=== PATIENT | female | born 2000 | race Caucasian/White ===

== ENCOUNTER 2018-01-17 17:23 | Emergency (ER) | payer OTHER ==
[~2018-01-17] VITALS: Ht 167.6 cm; Wt 58.1 kg
[~2018-01-17 17:23] MED LIST: ONDA4TAB10 SL; POLY10DR EACHEYE; SULF1TAB24 PO
--- NOTE | 2018-01-17 18:28 | ED.ADGEN ---
Past History Past Medical History: Anxiety Past Surgical History: No Surgical History Smoking: Non-smoker Alcohol Use: None Drug Use: None Adult General Chief Complaint Chief Complaint " I ve been having these interment headaches around my Lt eye...and I get decreased vision for the 30 seconds... but I had another episode that was maybe 4 minutes when I called into work today....." I ve seen Dr. Bradley.. yesterday and she did some blood work.. and I seen the eye doctor at [facility]... She did a dilated exam... and use the eye equipment to look into the back of my eye... my eye hurts more when I wear my glasses.. the vision is horace núñez... when I have the pain.. but it goes away when the pain goes away...." " I do have a scheduled KAMILLA this next week..." HPI HPI Patient is a 17 year old female who presents with above hx of interment headaches & vision loss or "núñez vision". No new glasses for past 3 yrs. Has schedule apt. for new glasses. Pt. Visual Acuity is 20/30 Rt. 20/40 Lt. eye. Pt. has hx of Myopia. EOMI appear intact. Photophobia in Lt eye with light, but no consensual photophobia. Her old glasses make her left eye pain worse. Pt. has no limbus injection. Reportedly [facility] eye exam exam with dilation and fluorescein was reportedly negative. Patient denies any immunosuppression. Patient denies any travel. Patient denies any trauma. Percussion of maxillary sinus increases pain. No temporal artery tenderness. Review of Systems Review of Systems Constitutional: Denies fever or chills [] Eyes: Denies change in visual acuity in right eye. Denies, redness,. Complaints of intermittent left eye pain . Patient []complains of intermittent decreased visual acuity in left eye HENT: Denies nasal congestion or sore throat [] Respiratory: Denies cough or shortness of breath [] Cardiovascular: No additional information not addressed in HPI [] GI: Denies abdominal pain, nausea, vomiting, bloody stools or diarrhea [] : Denies dysuria or hematuria [] Musculoskeletal: Denies back pain or joint pain [] Integument: Denies rash or skin lesions [] Neurologic: History of intermittent headache left orbital headache, denies focal weakness or sensory changes [] Endocrine: Denies polyuria or polydipsia [] All other systems were reviewed and found to be within normal limits, except as documented in this note. Family History Family History Noncontributory Current Medications Current Medications See nursing for home meds Allergies Allergies Allergies Coded Allergies Type Severity Reaction Last Updated Verified Penicillins Allergy Severe Hives 08/05/15 Yes Physical Exam Physical Exam Constitutional: Well developed, well nourished, no acute distress, non-toxic appearance. [] HENT: Normocephalic, atraumatic, bilateral external ears normal, oropharynx moist, no oral exudates, nose normal. [] Eyes: PERRLA, EOMI, conjunctiva normal, no discharge. Exam as per history of present illness Neck: Normal range of motion, no tenderness, supple, no stridor. [] Cardiovascular:Heart rate regular rhythm, no murmur [] Lungs & Thorax: Bilateral breath sounds clear to auscultation [] Abdomen: Bowel sounds normal, soft, no tenderness, no masses, no pulsatile masses. [] Skin: Warm, dry, no erythema, no rash. [] Back: No tenderness, no CVA tenderness. [] Extremities: No tenderness, no cyanosis, no clubbing, ROM intact, no edema. [] Neurologic: Alert and oriented X 3, normal motor function, normal sensory function, no focal deficits noted. [] Psychologic: Affect not anxious, , judgement normal, mood normal. [] Current Patient Data Vital Signs Vital Signs Date Time Temp Pulse Resp B/P (MAP) Pulse Ox O2 Delivery O2 Flow Rate FiO2 01/17/18 19:30 51 16 123/69 (87) 98 Room Air 01/17/18 17:47 97.7 Lab Results Laboratory Tests Test 01/17/18 18:25 White Blood Count 5.0 x10^3/uL (4.0-11.0) Red Blood Count 4.33 x10^6/uL (3.50-5.40) Hemoglobin 13.1 g/dL (12.0-15.5) Hematocrit 39.0 % (36.0-47.0) Mean Corpuscular Volume 90 fL (79-100) Mean Corpuscular Hemoglobin 30 pg (25-35) Mean Corpuscular Hemoglobin Concent 34 g/dL (31-37) Red Cell Distribution Width 13.6 % (11.5-14.5) Platelet Count 177 x10^3/uL (140-400) Neutrophils (%) (Auto) 46 % (31-73) Lymphocytes (%) (Auto) 42 % (24-48) Monocytes (%) (Auto) 10 % (0-9) H Eosinophils (%) (Auto) 1 % (0-3) Basophils (%) (Auto) 1 % (0-3) Neutrophils # (Auto) 2.3 x10^3uL (1.8-7.7) Lymphocytes # (Auto) 2.1 x10^3/uL (1.0-4.8) Monocytes # (Auto) 0.5 x10^3/uL (0.0-1.1) Eosinophils # (Auto) 0.1 x10^3/uL (0.0-0.7) Basophils # (Auto) 0.0 x10^3/uL (0.0-0.2) Erythrocyte Sedimentation Rate 1 (0-25) Sodium Level 143 mmol/L (136-145) Potassium Level 3.5 mmol/L (3.5-5.1) Chloride Level 105 mmol/L (98-107) Carbon Dioxide Level 30 mmol/L (21-32) Anion Gap 8 (6-14) Blood Urea Nitrogen 6 mg/dL (7-20) L Creatinine 0.6 mg/dL (0.6-1.0) Estimated GFR (Cockcroft-Gault) 128.8 Glucose Level 122 mg/dL (70-99) H Calcium Level 8.9 mg/dL (8.5-10.1) C-Reactive Protein 0.7 mg/L (0-3.3) EKG EKG [] Radiology/Procedures Radiology/Procedures CT shows no obvious sinusitis or mass or obvious optic nerve inflammation.[] Course & Med Decision Making Course & Med Decision Making Pertinent Labs and Imaging studies reviewed. (See chart for details). Have a repeat ophthalmic evaluation by ophthalmology. Call in a.m. for an appointment. Get follow-up MRI. Follow-up primary care. May take Tylenol for pain. Avoid any straining activity. Do not drive. A trial of prednisone for possible optic neuritis. Do a course of prednisone 50 daily for 5 days. Should see ophthalmology before ending prednisone. Must follow-up. [] Final Impression Final Impression 1. Intermittent decrease in visual acuity and left orbital pain [] Problems: Dragon Disclaimer Dragon Disclaimer This electronic medical record was generated, in whole or in part, using a voice recognition dictation system. VASILE LU MD Jan 17, 2018 18:27
[2018-01-17 18:42] LABS: BASO % 1 % (0-3); EOS # 0.1 x10^3/uL (0.0-0.7); EOS % 1 % (0-3); HEMOGLOBIN 13.1 g/dL (12.0-15.5); LYMPH # 2.1 x10^3/uL (1.0-4.8); LYMPH % 42 % (24-48); MEAN CORPUSCULAR HEMOGLOBIN 30 pg (25-35); MEAN CORPUSCULAR HGB CONC 34 g/dL (31-37); MEAN CORPUSCULAR VOLUME 90 fL (79-100); MONO # 0.5 x10^3/uL (0.0-1.1); MONO % 10 % (0-9); NEUT # 2.3 x10^3uL (1.8-7.7); NEUT % 46 % (31-73); PLATELET COUNT 177 x10^3/uL (140-400); RED BLOOD COUNT 4.33 x10^6/uL (3.50-5.40); RED CELL DISTRIBUTION WIDTH 13.6 % (11.5-14.5)
[2018-01-17 18:51] LABS: C REACTIVE PROTEIN 0.7 mg/L (0-3.3); CALCIUM 8.9 mg/dL (8.5-10.1); CREATININE 0.6 mg/dL (0.6-1.0); GFR 128.8; POTASSIUM 3.5 mmol/L (3.5-5.1)
--- NOTE | 2018-01-17 19:00 | RAD ---
PQRS Compliance Statement: One or more of the following individualized dose reduction techniques were utilized for this examination: 1. Automated exposure control 2. Adjustment of the mA and/or kV according to patient size 3. Use of iterative reconstruction technique CT head and maxillofacial without contrast 01/17/2018 6:43 PM INDICATION: Vision loss in the left eye with periorbital headache COMPARISON: None available TECHNIQUE: Multiple axial CT images of the head were obtained from skull base through the vertex without intravenous contrast. Axial CT images of the maxillofacial structures were obtained without intravenous contrast. FINDINGS: Head: Ventricles, sulci and basal cisterns are within normal limits. There is no hydrocephalus. Perales-white matter differentiation is normal. There is no acute intracranial hemorrhage. There is no mass, mass effect or midline shift. Posterior fossa is normal in appearance. Scalp and calvaria are normal. Globes are spherical and contour. Orbits are intact. No intraconal or extraconal mass is visualized. Optic nerves are normal. Extraocular muscles are normal in appearance. No preseptal or postseptal inflammatory changes. Paranasal sinuses are well aerated. Ostiomeatal units are widely patent. Maxilla and mandible are intact. Skull base is intact. Pterygoid plates are intact. Nasopharynx, oropharynx, tongue base and floor of mouth are normal. IMPRESSION: No acute intracranial hemorrhage. No acute fracture or soft tissue abnormality involving the maxillofacial structures. Electronically signed by: Gracie Carmona MD (01/17/2018 6:57 PM) [facility]
[2018-01-17] MEDS ORDERED: PRED50TA PO (19:19)
[2018-01-17 19:30] VITALS: BP 123/69
== END 2018-01-17 19:32 | disposition home or self-care (01) ==
LOC: ER 17:23
DX: H54.62 Unqualified visual loss, left eye, normal vision right eye (principal); H57.12 Ocular pain, left eye; R51 Headache; Z88.0 Allergy status to penicillin
CPT/HCPCS: 36415; 70450; 70486; 80048; 85025; 85651; 86140; 99285-25

== ENCOUNTER 2020-03-02 19:48 | Emergency (ER) | payer OTHER ==
[~2020-03-02] VITALS: Ht 167.6 cm; Wt 74.0 kg
[~2020-03-02 19:48] MED LIST changes: +PRED50TA PO
--- NOTE | 2020-03-02 20:31 | PHYS DOC ---
Past History Past Medical History: Anxiety, Bipolar, Depression, Schizophrenia Past Surgical History: No Surgical History Smoking: Non-smoker Alcohol Use: None Drug Use: None General Adult EDM: Chief Complaint: VAGINAL BLEEDING HPI: HPI: Patient is a 19 year old female who presents for evaluation of vaginal spotting and bleeding. Patient states she may have passed part of her or placenta. Patient had a sonogram yesterday and earlier during this . She is approximately 6 to 7 weeks along. Patient's BICYCLE FITTER is located in [place], [place]. Patient's last menstrual period was December 31. Patient is a 4 para 0. Patient has had multiple prior miscarriages. Patient has some minimal lower abdominal cramping. Patient states that she has had her hormone levels checked and those levels have been declining recently. Patient is otherwise benign-appearing. Patient states she has never needed a D &C in the past [] Review of Systems: Review of Systems: Constitutional: Denies fever or chills Eyes: Denies change in visual acuity HENT: Denies nasal congestion or sore throat Respiratory: Denies cough or shortness of breath Cardiovascular: Denies chest pain or edema GI: lower abdominal pain, no nausea, vomiting, bloody stools or diarrhea : Denies dysuria Musculoskeletal: Denies back pain or joint pain Integument: Denies rash Neurologic: Denies headache, focal weakness or sensory changes Endocrine: Denies polyuria or polydipsia Lymphatic: Denies swollen glands Psychiatric: Denies depression or has anxiety Heart Score: Risk Factors: Risk Factors: DM, Current or recent (<one month) smoker, HTN, HLP, family history of CAD, obesity. Risk Scores: Score 0 - 3: 2.5% MACE over next 6 weeks - Discharge Home Score 4 - 6: 20.3% MACE over next 6 weeks - Admit for Clinical Observation Score 7 - 10: 72.7% MACE over next 6 weeks - Early Invasive Strategies Allergies: Allergies: Allergies Coded Allergies Type Severity Reaction Last Updated Verified Penicillins Allergy Severe Hives 08/05/15 Yes erythromycin base Allergy Unknown 03/02/20 Yes Physical Exam: PE: Constitutional: Well developed, well nourished, mild acute distress, non-toxic appearance. [] HENT: Normocephalic, atraumatic, bilateral external ears normal, oropharynx moist, no oral exudates, nose normal. [] Eyes: PERRL, EOMI, conjunctiva normal, no discharge. [] Neck: Normal range of motion, no tenderness, supple, no stridor. [] Cardiovascular:Heart rate regular rhythm, no murmur [] Lungs & Thorax: Bilateral breath sounds clear to auscultation [] Abdomen: Bowel sounds normal, soft, scant suprapubic tenderness, no masses, no pulsatile masses. [] Skin: Warm, dry, no erythema, no rash. [] Back: No tenderness, no CVA tenderness. [] Extremities: No tenderness, no cyanosis, no clubbing, ROM intact, no edema. [] Neurologic: Alert and oriented X 3, normal motor function, normal sensory function, no focal deficits noted. [] Psychologic: Affect normal, judgement normal, anxious mood. ADVERTISING PROJECT MANAGER: Os slightly open, dark blood present, small clots present, minimal suprapubic tenderness, no adnexal tenderness [] Current Patient Data: Vital Signs: Vital Signs Date Time Temp Pulse Resp B/P (MAP) Pulse Ox O2 Delivery O2 Flow Rate FiO2 03/02/20 19:55 98.4 64 20 159/56 (90) 100 Room Air EKG: EKG: [] Radiology/Procedures: Radiology/Procedures: [] Course & Med Decision Making: Course & Med Decision Making Pertinent Labs and Imaging studies reviewed. (See chart for details) 2135 stable, patient is a positive with a beta quant of 3369. Hemoglobin is 13.3. Patient definitely showing signs of a miscarriage at this time. There is no emergency indication to repeat a sonogram since she just had one yesterday. Pelvic exam showed some blood present in the vaginal vault as well as a slightly opened cervical os. Patient is to call and see her BICYCLE FITTER right away and follow-up tomorrow. She will likely need a repeat beta quant and possibly sonogram depending upon how this threatened miscarriage progresses. Detailed follow-up instructions given. All questions answered [] Elmer Disclaimer: Elmer Disclaimer: This electronic medical record was generated, in whole or in part, using a voice recognition dictation system. Departure Departure: Impression: Primary Impression: Threatened miscarriage in early Disposition: HOME, SELF-CARE Condition: STABLE Referrals: PCP,OZ (PCP) Patient Instructions: Miscarriage Additional Instructions: Call and see your BICYCLE FITTER right away this week. Your blood test number is [id number]. Your hemoglobin is 13. Pelvic rest recommended, no tampons or sex. Return if bleeding is severe or you become very symptomatic. ELIZABETH HUBER DO Mar 02, 2020 20:31
[2020-03-02 20:46] LABS: BASO % 1 % (0-3); EOS # 0.1 x10^3/uL (0.0-0.7); EOS % 1 % (0-3); HEMATOCRIT 40.2 % (36.0-47.0); HEMOGLOBIN 13.3 g/dL (12.0-15.5); LYMPH # 2.5 x10^3/uL (1.0-4.8); LYMPH % 38 % (24-48); MEAN CORPUSCULAR HEMOGLOBIN 30 pg (25-35); MEAN CORPUSCULAR HGB CONC 33 g/dL (31-37); MEAN CORPUSCULAR VOLUME 92 fL (79-100); MONO # 0.6 x10^3/uL (0.0-1.1); MONO % 10 % (0-9); NEUT # 3.4 x10^3uL (1.8-7.7); NEUT % 51 % (31-73); PLATELET COUNT 227 x10^3/uL (140-400); RED BLOOD COUNT 4.39 x10^6/uL (3.50-5.40); RED CELL DISTRIBUTION WIDTH 13.8 % (11.5-14.5); WHITE BLOOD COUNT 6.7 x10^3/uL (4.0-11.0)
[2020-03-02 21:40] VITALS: BP 147/71
== END 2020-03-02 21:45 | disposition home or self-care (01) ==
LOC: ER 19:48
DX: O20.0 Threatened abortion (principal); Z3A.01 Less than 8 weeks gestation of pregnancy; Z88.0 Allergy status to penicillin; Z88.1 Allergy status to other antibiotic agents
CPT/HCPCS: 36415; 84702; 85025; 86900; 86901; 99284

== ENCOUNTER 2020-08-06 21:25 | Emergency (ER) | payer OTHER ==
[~2020-08-06] VITALS: Ht 165.1 cm; Wt 77.4 kg
--- NOTE | 2020-08-06 21:40 | PHYS DOC ---
Past History Past Medical History: Anxiety, Bipolar, Depression, Schizophrenia Past Surgical History: No Surgical History Smoking: Cigarettes Alcohol Use: None Drug Use: None General Adult HPI: HPI: "... I vomited some bright red blood spots.. this is my 4 th ... I am worried.. I had miscarry with the other three.. My boss at [employer] said to come in and get checked out.. I had just eaten two slices of Pizza..." Patient is a 20 year old female who presents with above hx and estimated 5 weeks and 5 day . Pt vomiting after eating pizza. Has had morning sickness and nausea with this . Patient does have a past history of GERD and reflux. Patient does continue to smoke. Patient is on vitamins. Patient denies any trauma. Patient denies any intake of bad food. Patient is following with Rehana at [facility]. Patient works at [employer] previous work-ups indicated she has blood type a positive patient does have a past history of anxiety, bipolar disorder, depression, schizophrenia. Patient denies any specific ill contacts. No recent travel outside the [place] area. No history immunosuppression. No history of coagulopathy. Any bleeding at this . Patient has had 4 previous miscarriages in the first trimester. t Review of Systems: Review of Systems: Constitutional: Denies fever or chills Eyes: Denies change in visual acuity HENT: Denies nasal congestion or sore throat Respiratory: Denies cough or shortness of breath Cardiovascular: Denies chest pain or edema GI: Complains of epigastric abdominal pain, nausea, vomiting,. Denies bloody stools or diarrhea. Did have some spots of blood with most recent vomit that were bright red after eating pizza : Denies dysuria Musculoskeletal: Denies back pain or joint pain Integument: Denies rash Neurologic: Denies headache, focal weakness or sensory changes Endocrine: Denies polyuria or polydipsia Lymphatic: Denies swollen glands Psychiatric: Denies depression or anxiety Heart Score: Risk Factors: Risk Factors: DM, Current or recent (<one month) smoker, HTN, HLP, family history of CAD, obesity. Risk Scores: Score 0 - 3: 2.5% MACE over next 6 weeks - Discharge Home Score 4 - 6: 20.3% MACE over next 6 weeks - Admit for Clinical Observation Score 7 - 10: 72.7% MACE over next 6 weeks - Early Invasive Strategies Family History: Family History: Noncontributory Current Medications: Current Meds: See nursing for home meds Allergies: Allergies: Allergies Coded Allergies Type Severity Reaction Last Updated Verified Penicillins Allergy Severe Hives 08/05/15 Yes erythromycin base Allergy Unknown 03/02/20 Yes Physical Exam: PE: Constitutional: no acute distress, non-toxic appearance. [] HENT: Normocephalic, atraumatic, bilateral external ears normal, oropharynx moist, no oral exudates, nose normal. [] Eyes: PERRLA, EOMI, conjunctiva normal, no discharge. [] Neck: Normal range of motion, no tenderness, supple, no stridor. [] Cardiovascular:Heart rate regular rhythm, no murmur [] Lungs & Thorax: Bilateral breath sounds equal apex with scattered wheezes on auscultation [] Abdomen: Bowel sounds normal, soft, mild upper right quadrant tenderness, no masses, no pulsatile masses. Gravid. Obese. Patient declines pelvic or rectal exam Skin: Warm, dry, no erythema, no rash. [] Back: No tenderness, no CVA tenderness. [] Extremities: No tenderness, no cyanosis, no clubbing, ROM intact, no edema. [] No cording appreciated Neurologic: Alert and oriented X 3, normal motor function, normal sensory function, no focal deficits noted. [] Psychologic: Affect extremely anxious, judgement normal, mood normal. [] EKG: EKG: [] Radiology/Procedures: Radiology/Procedures: [] Course & Med Decision Making: Course & Med Decision Making Pertinent Labs and Imaging studies reviewed. (See chart for details) Clear fluid diet only for the next 48 hours. Push clear fluids. Follow-up primary care. Monitor for additional vomiting. Take vitamins. Recommend avoiding spicy or greasy foods. 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 For active vomiting he may take Zofran up to 4 times a day. Patient encouraged to stop smoking. Impression: 1. Hyperemesis gravidarum 2. Hemoglobin stable 12.4 3. BhCG16, 100 4. Blood type A Positive 5. Tobacco abuse [] Dragon Disclaimer: Elmer Disclaimer: This electronic medical record was generated, in whole or in part, using a voice recognition dictation system. Departure Departure: Disposition: 01 HOME/RESIDENCE PRIOR TO ADM Condition: STABLE Referrals: PCP,NO (PCP) Scripts Ondansetron Hcl (ZOFRAN) 8 Mg Tablet 8 MG PO QIDPRN PRN for nv, #30 BOTTLE Prov: VASILE LU MD 08/07/20 Elmer Disclaimer This chart was dictated in whole or in part using Voice Recognition software in a busy, high-work load, and often noisy Emergency Department environment. It may contain unintended and wholly unrecognized errors or omissions. Dragon Disclaimer This chart was dictated in whole or in part using Voice Recognition software in a busy, high-work load, and often noisy Emergency Department environment. It may contain unintended and wholly unrecognized errors or omissions. VASILE LU MD Aug 06, 2020 21:40
[2020-08-06] MEDS ORDERED: ONDANSETRON PF 4 MG/2 ML VIAL. IVP ONE (22:15)
[2020-08-06] MEDS ORDERED: MAGNESIUM HYDROXIDE 2,400 MG/30 ML ORAL.SUSP. PO ONE (22:15)
[2020-08-06] MEDS ORDERED: IV RINGERS SOLUTION,LACTATED 1,000 ML IV SCH (22:15)
[2020-08-06] MEDS ORDERED: FAMOTIDINE 20 MG/2 ML VIAL IVP ONE (22:15)
[2020-08-06 23:21] LABS: CALCIUM 9.3 mg/dL (8.5-10.1); CREATININE 0.8 mg/dL (0.6-1.0); GFR 89.7; POTASSIUM 3.8 mmol/L (3.5-5.1)
[2020-08-06 23:26] LABS: BASO # 0.1 x10^3/uL (0.0-0.2); BASO % 1 % (0-3); EOS # 0.1 x10^3/uL (0.0-0.7); EOS % 1 % (0-3); HEMATOCRIT 37.7 % (36.0-47.0); HEMOGLOBIN 12.4 g/dL (12.0-15.5); LYMPH % 31 % (24-48); MEAN CORPUSCULAR HEMOGLOBIN 30 pg (25-35); MEAN CORPUSCULAR HGB CONC 33 g/dL (31-37); MEAN CORPUSCULAR VOLUME 92 fL (79-100); MONO # 0.9 x10^3/uL (0.0-1.1); MONO % 10 % (0-9); NEUT # 5.7 x10^3uL (1.8-7.7); NEUT % 58 % (31-73); PLATELET COUNT 220 x10^3/uL (140-400); RED BLOOD COUNT 4.09 x10^6/uL (3.50-5.40); RED CELL DISTRIBUTION WIDTH 14.1 % (11.5-14.5); WHITE BLOOD COUNT 9.7 x10^3/uL (4.0-11.0)
[2020-08-06 23:27] LABS: ALBUMIN 3.7 g/dL (3.4-5.0); DIRECT BILIRUBIN 0.1 mg/dL (0.0-0.2); TOTAL BILIRUBIN 0.3 mg/dL (0.2-1.0); TOTAL PROTEIN 7.9 g/dL (6.4-8.2)
[2020-08-06 23:28] LABS: BARBITURATES NEG (NEG); BENZODIAZEPINES NEG (NEG); CANNABINOIDS NEG (NEG); COCAINE NEG (NEG); METHADONE NEG (NEG); OPIATES NEG (NEG); PHENCYCLIDINE NEG (NEG)
[2020-08-06 23:31] LABS: BACTERIA,URINE FEW /HPF (0-FEW); BILIRUBIN,URINE NEG (NEG); CLARITY,URINE HAZY; COLOR,URINE STRAW; GLUCOSE,URINE NEG (NEG); NITRITE,URINE NEG (NEG); RBC,URINE 0 /HPF (0-2); SQUAMOUS EPITHELIAL CELL,UR MOD /LPF; UROBILINOGEN,URINE 0.2 mg/dL (0.2 mg/dL); WBC,URINE OCC /HPF (0-4)
[2020-08-06 23:34] LABS: AMPHETAMINE/METHAMPHETAMINE NEG (NEG)
[2020-08-07 01:00] VITALS: BP 129/84
[2020-08-07] MEDS ORDERED: ONDA8TAB9 PO (01:20)
== END 2020-08-07 01:29 | disposition home or self-care (01) ==
LOC: ER 21:25
DX: O21.0 Mild hyperemesis gravidarum (principal); R10.13 Epigastric pain; Z3A.01 Less than 8 weeks gestation of pregnancy; O99.331 Smoking (tobacco) complicating pregnancy, first trimester; Z88.0 Allergy status to penicillin; Z88.1 Allergy status to other antibiotic agents
CPT/HCPCS: 36415; 80048; 80076; 80307; 81001; 81025; 82150; 83690; 84702; 85025; 85610; 85730; 96361; 96374; 96375; 99284; J2405; J3490; J7120

== ENCOUNTER 2020-09-04 07:39 | Emergency (ER) | payer OTHER ==
[~2020-09-04] VITALS: Ht 165.1 cm; Wt 77.4 kg
[~2020-09-04 07:39] MED LIST changes: +ONDA8TAB9 PO
[2020-09-04] MEDS ORDERED: IV NORMAL SALINE 1,000ML 1,000 ML IV ONE (08:00)
--- NOTE | 2020-09-04 08:09 | PHYS DOC ---
Past History Past Medical History: Anxiety, Bipolar, Depression, Schizophrenia Past Surgical History: No Surgical History Smoking: Cigarettes Alcohol Use: None Drug Use: None General Adult EDM: Chief Complaint: BLOODY STOOL HPI: HPI: 20-year-old female presents with rectal bleeding. Patient had 1 bright red b loody bowel movement today. The bowel movement was painless. Her last bowel movement was normal 2 days ago. She has a bowel movement about every 3 days. She has a history of chronic constipation. The patient has not had a significant bloody stool before. She has had some blood streaks with her stool. The patient is 9 weeks , but is adamant that the bleeding did not come from her vagina. She is having no abdominal pain. She denies fever or chills. She has no other complaints at this time. Review of Systems: Review of Systems: Constitutional: Denies fever or chills Eyes: Denies change in visual acuity HENT: Denies nasal congestion or sore throat Respiratory: Denies cough or shortness of breath Cardiovascular: Denies chest pain or edema GI: Denies abdominal pain, nausea, vomiting, bloody stools or diarrhea : Rectal bleeding Musculoskeletal: Denies back pain or joint pain Integument: Denies rash Neurologic: Denies headache, focal weakness or sensory changes Endocrine: Denies polyuria or polydipsia Lymphatic: Denies swollen glands Psychiatric: Denies depression or anxiety Current Medications: Current Meds: Current Medications Medications (Trade) Dose Ordered Sig/Janna Start Time Stop Time Status Last Admin Dose Admin Sodium Chloride 1,000 ml @ 1,000 mls/hr 1X ONCE 09/04/20 08:00 09/04/20 08:59 Allergies: Allergies: Allergies Coded Allergies Type Severity Reaction Last Updated Verified Penicillins Allergy Severe Hives 08/05/15 Yes erythromycin base Allergy Unknown 03/02/20 Yes Physical Exam: PE: Constitutional: Well developed, well nourished, no acute distress, non-toxic appearance. [] HENT: Normocephalic, atraumatic, bilateral external ears normal, oropharynx moist, no oral exudates, nose normal. [] Eyes: PERRLA, EOMI, conjunctiva normal, no discharge. [] Neck: Normal range of motion, no tenderness, supple, no stridor. [] Cardiovascular:Heart rate regular rhythm, no murmur [] Lungs & Thorax: Bilateral breath sounds clear to auscultation [] Abdomen: Bowel sounds normal, soft, no tenderness, no masses, no pulsatile masses. [] Skin: Warm, dry, no erythema, no rash. [] Back: No tenderness, no CVA tenderness. [] Extremities: No tenderness, no cyanosis, no clubbing, ROM intact, no edema. [] Neurologic: Alert and oriented X 3, normal motor function, normal sensory function, no focal deficits noted. [] Psychologic: Affect normal, judgement normal, mood normal. Rectal: Normal external exam, no pain with DIMAS, prominent area of rectal wall in the 9 o'clock position, soft. No obvious blood. [] EKG: EKG: [] Radiology/Procedures: Radiology/Procedures: [] Heart Score: Risk Factors: Risk Factors: DM, Current or recent (<one month) smoker, HTN, HLP, family history of CAD, obesity. Risk Scores: Score 0 - 3: 2.5% MACE over next 6 weeks - Discharge Home Score 4 - 6: 20.3% MACE over next 6 weeks - Admit for Clinical Observation Score 7 - 10: 72.7% MACE over next 6 weeks - Early Invasive Strategies Course & Med Decision Making: Course & Med Decision Making Pertinent Labs and Imaging studies reviewed. (See chart for details) The patient's labs are unremarkable. She is not anemic. She has had no further bleeding in the emergency room. My rectal exam did not show any obvious blood. This is likely a small fissure or hemorrhoid due to her chronic constipation. It should self resolve. If the patient continues to have bloody bowel movements and/or any new symptoms develop, she will return to the emergency room. She is stable for discharge at this time. [] Dragon Disclaimer: Dragon Disclaimer: This electronic medical record was generated, in whole or in part, using a voice recognition dictation system. Departure Departure: Impression: Primary Impression: Rectal bleeding Additional Impressions: Constipation by delayed colonic transit Qualified Codes: Z3A.09 - 9 weeks gestation of Disposition: 01 DC HOME SELF CARE/HOMELESS Condition: STABLE Referrals: PCP,UNKNOWN (PCP) Patient Instructions: Constipation, Adult, [id number], Rectal Bleeding, [id number] RITA FELTON DO Sep 04, 2020 08:09
[2020-09-04 08:23] LABS: BASO % 0 % (0-3); EOS # 0.1 x10^3/uL (0.0-0.7); EOS % 1 % (0-3); HEMATOCRIT 39.5 % (36.0-47.0); HEMOGLOBIN 13.3 g/dL (12.0-15.5); LYMPH # 2.2 x10^3/uL (1.0-4.8); LYMPH % 27 % (24-48); MEAN CORPUSCULAR HEMOGLOBIN 31 pg (25-35); MEAN CORPUSCULAR HGB CONC 34 g/dL (31-37); MEAN CORPUSCULAR VOLUME 91 fL (79-100); MONO # 0.6 x10^3/uL (0.0-1.1); MONO % 7 % (0-9); NEUT # 5.4 x10^3uL (1.8-7.7); NEUT % 65 % (31-73); PLATELET COUNT 225 x10^3/uL (140-400); RED BLOOD COUNT 4.35 x10^6/uL (3.50-5.40); RED CELL DISTRIBUTION WIDTH 13.3 % (11.5-14.5); WHITE BLOOD COUNT 8.2 x10^3/uL (4.0-11.0)
[2020-09-04 08:29] LABS: CREATININE 0.6 mg/dL (0.6-1.0); POTASSIUM 3.7 mmol/L (3.5-5.1)
[2020-09-04 08:35] LABS: ALBUMIN 3.4 g/dL (3.4-5.0); ALBUMIN/GLOBULIN RATIO 0.9 (1.0-1.7); TOTAL BILIRUBIN 0.4 mg/dL (0.2-1.0); TOTAL PROTEIN 7.2 g/dL (6.4-8.2)
[2020-09-04 08:43] LABS: CALCIUM 8.9 mg/dL (8.5-10.1)
[2020-09-04 10:11] LABS: BILIRUBIN,URINE NEG (NEG); CLARITY,URINE TURBID; COLOR,URINE YELLOW; GLUCOSE,URINE NEG (NEG); NITRITE,URINE NEG (NEG); UROBILINOGEN,URINE 0.2 mg/dL (0.2 mg/dL)
[2020-09-04 10:12] LABS: BACTERIA,URINE MANY /HPF (0-FEW); SQUAMOUS EPITHELIAL CELL,UR MANY /LPF
== END 2020-09-04 09:45 | disposition home or self-care (01) ==
LOC: ER 07:39
DX: O46.8X1 Other antepartum hemorrhage, first trimester (principal); K59.01 Slow transit constipation; O99.331 Smoking (tobacco) complicating pregnancy, first trimester; O99.341 Other mental disorders complicating pregnancy, first trimester; F41.9 Anxiety disorder, unspecified; F31.9 Bipolar disorder, unspecified; Z3A.09 9 weeks gestation of pregnancy; F20.9 Schizophrenia, unspecified; Z88.0 Allergy status to penicillin; Z88.1 Allergy status to other antibiotic agents
CPT/HCPCS: 36415; 80053; 81001; 85025; 87086; 96360; 99283; J7030

== ENCOUNTER 2020-09-21 09:29 | Emergency (ER) | payer OTHER ==
[~2020-09-21] VITALS: Ht 167.6 cm; Wt 80.0 kg
[2020-09-21 11:27] LABS: BASO % 0 % (0-3); EOS # 0.1 x10^3/uL (0.0-0.7); EOS % 1 % (0-3); HEMATOCRIT 41.8 % (36.0-47.0); HEMOGLOBIN 13.5 g/dL (12.0-15.5); LYMPH # 1.7 x10^3/uL (1.0-4.8); LYMPH % 22 % (24-48); MEAN CORPUSCULAR HEMOGLOBIN 30 pg (25-35); MEAN CORPUSCULAR HGB CONC 32 g/dL (31-37); MEAN CORPUSCULAR VOLUME 92 fL (79-100); MONO # 0.5 x10^3/uL (0.0-1.1); MONO % 7 % (0-9); NEUT # 5.4 x10^3uL (1.8-7.7); NEUT % 70 % (31-73); PLATELET COUNT 208 x10^3/uL (140-400); RED BLOOD COUNT 4.55 x10^6/uL (3.50-5.40); RED CELL DISTRIBUTION WIDTH 13.7 % (11.5-14.5); WHITE BLOOD COUNT 7.7 x10^3/uL (4.0-11.0)
[2020-09-21 11:37] LABS: CALCIUM 9.3 mg/dL (8.5-10.1); CREATININE 0.6 mg/dL (0.6-1.0); POTASSIUM 4.2 mmol/L (3.5-5.1)
[2020-09-21 11:40] LABS: BILIRUBIN,URINE NEG (NEG); CLARITY,URINE CLOUDY; COLOR,URINE YELLOW; GLUCOSE,URINE NEG (NEG); UROBILINOGEN,URINE 0.2 mg/dL (0.2 mg/dL)
[2020-09-21 11:41] LABS: BACTERIA,URINE MANY /HPF (0-FEW); NITRITE,URINE POS (NEG); SQUAMOUS EPITHELIAL CELL,UR MANY /LPF
[2020-09-21 11:44] LABS: ALBUMIN 3.3 g/dL (3.4-5.0); ALBUMIN/GLOBULIN RATIO 0.8 (1.0-1.7); TOTAL BILIRUBIN 0.2 mg/dL (0.2-1.0); TOTAL PROTEIN 7.5 g/dL (6.4-8.2)
--- NOTE | 2020-09-21 13:05 | RAD ---
Examination: Obstetric ultrasound less than 14 weeks HISTORY: History of left lower quadrant abdominal pain COMPARISON: None available. FINDINGS: The uterus measures 9.5 x 8.5 x 7.2 cm. Single living intrauterine identified with heart rate of 149 bpm. The right and left ovaries could not be identified. The crown-rump length measures 6.4 cm corresponding to 12 weeks and 5 days. Estimated date of delivery by ultrasound 03/31/2021. Small amount of free fluid identified in the cul-de-sac. IMPRESSION: 1. Single living intrauterine as described above. 2. Small amount of free fluid identified in the cul-de-sac, nonspecific. Electronically signed by: Steven Rosado MD (09/21/2020 1:02 PM) [id number]
[2020-09-21] MEDS ORDERED: CEFP200T PO (13:50)
--- NOTE | 2020-09-21 13:51 | PHYS DOC ---
Past History Past Medical History: Depression Past Surgical History: No Surgical History Smoking: Cigarettes Alcohol Use: None Drug Use: None General Adult EDM: Chief Complaint: HEMATEMESIS/VOMITING BLOOD HPI: HPI: 20 yo F @ approximately 12 wks2d (arnulfo 04/07) pmh depression, presents to the ed with c/o one episode of vomiting with blood-tinged emesis. On no AC. Follows with ob in [place]. Is on a medicine to "keep my cervix closed," unsure the name. Pt also reports having a bowel movement in the ed had mild bright red blood in her stool after straining. Has been told she has external hemorrhoids- has no rectal pain. Does report increased urinary frequency with mild dysuria. Review of Systems: Review of Systems: Constitutional: Denies fever or chills Eyes: Denies change in visual acuity HENT: Denies nasal congestion or sore throat Respiratory: Denies cough or shortness of breath Cardiovascular: Denies chest pain or edema GI: Denies abdominal pain, nausea, or diarrhea : Denies hematuria or vaginal bleeding or abnormal vaginal discharge Musculoskeletal: Denies back pain or joint pain Integument: Denies rash Neurologic: Denies headache, focal weakness or sensory changes Endocrine: Denies polyuria or polydipsia Lymphatic: Denies swollen glands Psychiatric: Denies depression or anxiety Allergies: Allergies: Allergies Coded Allergies Type Severity Reaction Last Updated Verified Penicillins Allergy Severe Hives 08/05/15 Yes erythromycin base Allergy Unknown 03/02/20 Yes Physical Exam: PE: Constitutional: Well developed, well nourished, no acute distress, non-toxic appearance. [] HENT: Normocephalic, atraumatic, Eyes: EOMI, conjunctiva normal, no discharge. [] Neck: Normal range of motion, supple, Cardiovascular: S1/2 present, normal rhythm Lungs & Thorax: Speaking in full sentences, bilateral equal chest rise Abdomen: soft, no tenderness, Skin: Warm, dry, no erythema, no rash. [] Back: No tenderness, no CVA tenderness. [] Extremities: No tenderness, no cyanosis, no clubbing, ROM intact, no edema. [] Neurologic: Alert and oriented X 3, normal motor function, normal sensory function, no focal deficits noted. [] Psychologic: judgement normal, very anxious and crying on arrival-is worried about baby (h/o 4 miscarriages) Pelvic/Rectal: pt declined, "I know I have hemorrhoids," Current Patient Data: Labs: Laboratory Tests Test 09/21/20 10:44 09/21/20 11:04 Urine Collection Type Unknown Urine Color Yellow Urine Clarity Cloudy Urine pH 5.5 Urine Specific [place] >=1.030 Urine Protein Neg (NEG-TRACE) Urine Glucose (UA) Neg mg/dL (NEG) Urine Ketones (Stick) Neg mg/dL (NEG) Urine Blood Small (NEG) Urine Nitrite Pos (NEG) Urine Bilirubin Neg (NEG) Urine Urobilinogen Dipstick 0.2 mg/dL (0.2 mg/dL) Urine Leukocyte Esterase Small (NEG) Urine RBC 11-20 /HPF (0-2) Urine WBC 5-10 /HPF (0-4) Urine Squamous Epithelial Cells Many /LPF Urine Bacteria Many /HPF (0-FEW) White Blood Count 7.7 x10^3/uL (4.0-11.0) Red Blood Count 4.55 x10^6/uL (3.50-5.40) Hemoglobin 13.5 g/dL (12.0-15.5) Hematocrit 41.8 % (36.0-47.0) Mean Corpuscular Volume 92 fL (79-100) Mean Corpuscular Hemoglobin 30 pg (25-35) Mean Corpuscular Hemoglobin Concent 32 g/dL (31-37) Red Cell Distribution Width 13.7 % (11.5-14.5) Platelet Count 208 x10^3/uL (140-400) Neutrophils (%) (Auto) 70 % (31-73) Lymphocytes (%) (Auto) 22 % (24-48) L Monocytes (%) (Auto) 7 % (0-9) Eosinophils (%) (Auto) 1 % (0-3) Basophils (%) (Auto) 0 % (0-3) Neutrophils # (Auto) 5.4 x10^3uL (1.8-7.7) Lymphocytes # (Auto) 1.7 x10^3/uL (1.0-4.8) Monocytes # (Auto) 0.5 x10^3/uL (0.0-1.1) Eosinophils # (Auto) 0.1 x10^3/uL (0.0-0.7) Basophils # (Auto) 0.0 x10^3/uL (0.0-0.2) Prothrombin Time 9.6 SEC (9.4-11.4) Prothrombin Time INR 0.9 (0.9-1.1) Activated Partial Thromboplast Time 26 SEC (23-33) Maternal Serum HCG Beta Subunit 48395 mIU/mL (0-6) H Sodium Level 137 mmol/L (136-145) Potassium Level 4.2 mmol/L (3.5-5.1) Chloride Level 102 mmol/L (98-107) Carbon Dioxide Level 24 mmol/L (21-32) Anion Gap 11 (6-14) Blood Urea Nitrogen 7 mg/dL (7-20) Creatinine 0.6 mg/dL (0.6-1.0) Estimated GFR (Cockcroft-Gault) 125.0 BUN/Creatinine Ratio 12 (6-20) Glucose Level 94 mg/dL (70-99) Calcium Level 9.3 mg/dL (8.5-10.1) Total Bilirubin 0.2 mg/dL (0.2-1.0) Aspartate Amino Transferase (AST) 17 U/L (15-37) Alanine Aminotransferase (ALT) 22 U/L (14-59) Alkaline Phosphatase 79 U/L (46-116) Total Protein 7.5 g/dL (6.4-8.2) Albumin 3.3 g/dL (3.4-5.0) L Albumin/Globulin Ratio 0.8 (1.0-1.7) L Vital Signs: Vital Signs Date Time Temp Pulse Resp B/P (MAP) Pulse Ox O2 Delivery O2 Flow Rate FiO2 09/21/20 09:50 98.3 61 16 142/73 (96) 99 Room Air EKG: EKG: [] Radiology/Procedures: Radiology/Procedures: []IMAGING REPORT Signed PATIENT: KEO FREDERICK ACCOUNT: [id number] : 2000 LOCATION: ER AGE: 20 SEX: F EXAM STATUS: REG ER ORD. PHYSICIAN: JESSICA HANSEN DO REASON: LLQ PAIN, HEMATEMESIS PROCEDURE: OB <14 WKS W/TV Examination: Obstetric ultrasound less than 14 weeks HISTORY: History of left lower quadrant abdominal pain COMPARISON: None available. FINDINGS: The uterus measures 9.5 x 8.5 x 7.2 cm. Single living intrauterine identified with heart rate of 149 bpm. The right and left ovaries could not be identified. The crown-rump length measures 6.4 cm corresponding to 12 weeks and 5 days. Estimated date of delivery by ultrasound 03/31/2021. Small amount of free fluid identified in the cul-de-sac. IMPRESSION: 1. Single living intrauterine as described above. 2. Small amount of free fluid identified in the cul-de-sac, nonspecific. Electronically signed by: Steven Rosado MD (09/21/2020 1:02 PM) [id number] DICTATED AND SIGNED BY: STEVEN ORSADO MD DATE: 09/21/20 1306 CC: PCP,OZ; JESSICA HANSEN DO ~ Heart Score: Risk Factors: Risk Factors: DM, Current or recent (<one month) smoker, HTN, HLP, family history of CAD, obesity. Risk Scores: Score 0 - 3: 2.5% MACE over next 6 weeks - Discharge Home Score 4 - 6: 20.3% MACE over next 6 weeks - Admit for Clinical Observation Score 7 - 10: 72.7% MACE over next 6 weeks - Early Invasive Strategies Course & Med Decision Making: Course & Med Decision Making Pertinent Labs and Imaging studies reviewed. (See chart for details) Concern for one episode of hematemesis and one episode of hematochezia. Ultrasound shows live intrauterine . Urinalysis consistent with UTI. Pt HD and afebrile. Anxiety resolved with labs/imaging results. No further episodes of hematochezia. H&H and platelets stable. No ketonuria or proteinu mukund (< 20wks). Blood pressure elevated on arrival but in normal range at time of discharge. Will DC home on antibiotics for complicated UTI. Strict ED return precautions were given for abdominal or back pain, vaginal bleeding, fever or dehydration. Encouraged urgent outpatient follow-up with PMD and [facility]. Life-threatening processes were considered but are low suspicion at thi s time, given history and physical exam. Pt was educated on all prescription medications and adverse effects. All patient's questions were answered and pt was stable at time of discharge. Life/limb-threatening differential includes but is not limited to, hyperemesis gravidarum, ectopic , appendicitis, pancreatitis, pyelonephritis, help slightly, thyrotoxicosis, molar or gestational trophoblastic disease, pyelonephritis, hepatitis, biliary disease electrolyte abnormality or acute fatty liver of . I spoken with the patient and her caregivers. I explained the patient's condition, diagnoses and treatment plan based on the information available to me at this time. I have answered the patient and her caregiver's questions and addressed any concerns. The patient and her caregivers have a good understanding of patient's diagnosis, condition and treatment plan as can be expected at this point. Vital signs have been stable. Patient's condition is stable and appropriate for discharge from the emergency department. Patient will pursue further outpatient evaluation with primary care physician or other designated or consulting physician as outlined in the discharge instructions. The patient and/or caregivers are agreeable to this plan of care and follow-up instructions have been explained in detail. The patient and/or caregivers have received these instructions in written form and have expressed an understanding of the discharge instructions. The patient and/or caregivers are aware that any significant change of condition or worsening of symptoms should prompt immediate return to this or the closest emergency department or call to [facility] Disclaimer: Elmer Disclaimer: This electronic medical record was generated, in whole or in part, using a voice recognition dictation system. Departure Departure: Impression: Primary Impression: UTI (urinary tract infection) in in first trimester Disposition: 01 DC HOME SELF CARE/HOMELESS Condition: STABLE Referrals: PCP,NO (PCP) FOLLOW UP WITH FAMILY MEDICINE: Family Medicine Address: [address] [facility], [facility] [address] [place] [address] Patient Instructions: Urinary Tract Infection Additional Instructions: FOLLOW UP WITH OBGYN: [facility] [address] [facility] [facility], [facility] [address] [place] [address] EMERGENCY DEPARTMENT GENERAL DISCHARGE INSTRUCTIONS Thank you for coming to [facility] (ED) today and trusting us with you care. We trust that you had a positivie experience in our Emergency Department. If you wish to speak to the department management, you may call the director at [phone]. YOUR FOLLOW UP INSTRUCTIONS ARE FOLLOWS: 1. Do you have a private Doctor? If you do not have a private doctor, please ask for a resource list of physicians or clinics that may be able to assist you with follow up care. 2. The Emergency Physician has interpreted your x-rays. The X-Ray specialist will also review them. If there is a change in the findings, you will be notified in 48 hours when at all possible. 3. A lab test or culture has been done, your results will be reviewed and you will be notified if you need a change in treatment. ADDITIONAL INSTRUCTIONS AND INFORMATION: 1. Your care today has been supervised by a physician who is specially trained in emergency care. Many problems require more than one evaluation for a complete diagnosis and treatment. We recommend that you schedule your follow up appointment as recommended to ensure complete treatment of you illness or injury. If you are unable to obtain follow up care and continue to have a problem, or if your condition worsens, we recommend that you return to the ED. 2. We are not able to safely determine your condition over the phone nor are we able to give sound medical advice over the phone. For these safety reasons, if you call for medical advice we will ask you to come to the ED for further evaluation. 3. If you have any questions regarding these discharge instructions please call the ED at [phone]. SAFETY INFORMATION: In the interest of safety, wellness, and injury prevention; we encourage you to wear your sealbelt, if you smoke; quite smoking, and we encourage family to use a protective helmet for bicycling and other sporting events that present an increased risk for head injury. IF YOUR SYMPTOMS WORSEN OR NEW SYMPTOMS DEVELOP, OR YOU HAVE CONCERNS ABOUT YOUR CONDITION; OR IF YOUR CONDITION WORSENS WHILE YOU ARE WAITING FOR YOUR FOLLOW UP APPOINTMENT; EITHER CONTACT YOUR PRIMARY CARE DOCTOR, THE PHYSICIAN WHOSE NAME AND NUMBER YOU WERE GIVEN, OR RETURN TO THE ED IMMEDIATELY. Scripts Nitrofurantoin Monohyd/M-Cryst (MACROBID 100 MG CAPSULE) 100 Mg Capsule 1 CAP PO BID for uti for 14 Days, #28 CAP 0 Refills Prov: JESSICA HANSEN DO 09/21/20 JESSICA HANSEN DO Sep 21, 2020 13:51
[2020-09-21 14:00] VITALS: BP 129/51
[2020-09-21] MEDS ORDERED: NITR100C62 PO (14:21)
== END 2020-09-21 14:26 | disposition home or self-care (01) ==
LOC: ER 09:29
DX: O23.41 Unspecified infection of urinary tract in pregnancy, first trimester (principal); O21.9 Vomiting of pregnancy, unspecified; O99.331 Smoking (tobacco) complicating pregnancy, first trimester; Z88.0 Allergy status to penicillin; Z3A.12 12 weeks gestation of pregnancy; Z88.1 Allergy status to other antibiotic agents
CPT/HCPCS: 36415; 76801; 76817; 80053; 81001; 84702; 85025; 85610; 85730; 87086; 99284

== ENCOUNTER 2021-01-08 11:32 | Emergency (ER) | payer OTHER ==
[~2021-01-08] VITALS: Ht 167.6 cm; Wt 87.2 kg
[2021-01-08 11:32] VITALS: BP 125/83
[~2021-01-08 11:32] MED LIST changes: +CEFP200T PO; +NITR100C62 PO
[2021-01-08] MEDS ORDERED: ONDANSETRON ODT 4 MG TAB.RAPDIS PO ONE (12:00)
[2021-01-08] MEDS ORDERED: ACETAMINOPHEN 325 MG TABLET PO ONE (12:00)
[2021-01-08] MEDS ORDERED: ONDANSETRON PF 4 MG/2 ML VIAL. ONE (12:10)
[2021-01-08] MEDS ORDERED: ONDANSETRON PF 4 MG/2 ML VIAL. IVP ONE (12:30)
[2021-01-08 12:46] LABS: BASO % 0 % (0-3); EOS # 0.1 x10^3/uL (0.0-0.7); EOS % 1 % (0-3); HEMATOCRIT 29.7 % (36.0-47.0); HEMOGLOBIN 9.8 g/dL (12.0-15.5); LYMPH # 1.8 x10^3/uL (1.0-4.8); LYMPH % 17 % (24-48); MEAN CORPUSCULAR HEMOGLOBIN 29 pg (25-35); MEAN CORPUSCULAR HGB CONC 33 g/dL (31-37); MEAN CORPUSCULAR VOLUME 87 fL (79-100); MONO # 0.8 x10^3/uL (0.0-1.1); MONO % 7 % (0-9); NEUT % 76 % (31-73); PLATELET COUNT 257 x10^3/uL (140-400); RED BLOOD COUNT 3.41 x10^6/uL (3.50-5.40); RED CELL DISTRIBUTION WIDTH 13.2 % (11.5-14.5); WHITE BLOOD COUNT 10.6 x10^3/uL (4.0-11.0)
--- NOTE | 2021-01-08 13:54 | RAD ---
OB ultrasound limited HISTORY: 27 weeks with inguinal pain Sonographic examination appearance was performed by transabdominal technique. Multiple static images were obtained. There is a single live intrauterine . The heartbeat is confirmed at 127 beats per minute. Vi sualization of structures is limited at this advanced gestational age. The amniotic fluid volum e appears normal amniotic fluid index measures 14.1 cm. The cervix is not well seen due to the cephal ic position. There is an anterior placenta. The LMP of 07/01/2020 corresponds with 27 week 2 day gestational age and estimated confinement of April 07, 2021 Estimated size by ultrasound is 29 weeks 1 day estimated confinement 03/25/2021. weight percentile 69%. Estimated weight is 2 lbs. 13 oz. +/- 7 ounces. The measurements are as follows: BPD 7.5 cm 30 weeks 0 days Head is covered 27 cm 29 weeks 5 days As follows comments 25 cm 29 weeks 0 days Femur length 5.3 cm 28 weeks 0 days IMPRESSION: 1. Single live intrauterine at 29 weeks 2 days gestational age by LMP measures 29 weeks 1 d ay gestational age by ultrasound. This is slightly greater interval growth than expected since the 2019 exam but is within one standard deviation. 2. No structural anomalies identified. A short-term follow-up ultrasound could be performed if clinically indicated. Electronically signed by: Mega Ruiz III, MD (01/08/2021 1:52 PM) [id number]
--- NOTE | 2021-01-08 14:16 | PHYS DOC ---
Past History Past Medical History: Depression, UTI Past Surgical History: No Surgical History Smoking: Cigarettes Alcohol Use: None Drug Use: None General Adult EDM: Chief Complaint: ABDOMINAL PAIN IN HPI: HPI: 20 yo F at 27 days and 2 weeks based off arnulfo from [place] (04/07/21, follows with ob @ [facility]), presents to the ED with complaints of bilateral lower pelvic pain that started earlier this morning with associated nausea and nonbloody nonbilious vomiting. Patient reports the nausea and vomiting is normal/ related. Unsure reason for 4 prior miscarriages in first trimester that required no surgery/D&C. Has been worked up for hypercoagulable state, everything was negative, "blood clots run in my family although I have never had one." Denies any blunt trauma, vaginal bleeding, abnor mal vaginal discharge itching or odor, dysuria, hematuria, new/worsening n/v, flulike symptoms or flank pain. Is here with her bf who is also a pt. States she's really nervous and worried because "I've never been this far along in -is something wrong?" Denies any water leakage from vagina, no incontinence. Has not taken anything for the pain, requests Tylenol. Review of Systems: Review of Systems: Constitutional: Denies fever or chills Eyes: Denies change in visual acuity or blurred vision HENT: Denies nasal congestion or sore throat Respiratory: Denies cough or shortness of breath Cardiovascular: Denies chest pain or edema GI: Denies bloody stools or diarrhea or epigastric abdominal pain : Denies dysuria or hematuria Musculoskeletal: Denies back pain or joint pain Integument: Denies rash or diaphoresis Neurologic: Denies headache, focal weakness or sensory changes Endocrine: Denies polyuria or polydipsia Lymphatic: Denies swollen glands Psychiatric: Denies depression or anxiety Current Medications: Current Meds: Current Medications Medications (Trade) Dose Ordered Sig/Janna Start Time Stop Time Status Last Admin Dose Admin Acetaminophen (Tylenol) 650 mg 1X ONCE 01/08/21 12:00 01/08/21 12:11 DC 01/08/21 12:28 650 MG Ondansetron HCl (Zofran Odt) 4 mg 1X ONCE 01/08/21 12:00 01/08/21 12:11 DC Ondansetron HCl (Zofran) 4 mg 1X ONCE 01/08/21 12:30 01/08/21 12:43 DC 01/08/21 12:28 4 MG Allergies: Allergies: Allergies Coded Allergies Type Severity Reaction Last Updated Verified Penicillins Allergy Severe Hives 08/05/15 Yes erythromycin base Allergy Unknown 03/02/20 Yes Physical Exam: PE: Constitutional: Well developed, well nourished, no acute distress, non-toxic appearance. HENT: Normocephalic, atraumatic, Eyes: EOMI, conjunctiva normal, no discharge. Neck: Normal range of motion, supple, Cardiovascular: S1/2 present, tachycardic Lungs & Thorax: Speaking in full sentences, bilateral equal chest rise, no tachypnea or increased work of breathing Abdomen: soft, no Childs's sign, fundus 2 cm above umbilicus-no pain with fundal pressure, pain localized over left/right inguinal canals-no rash/LAD/swelling-cannot reproduce Skin: Warm, dry, no erythema, no rash. Extremities: No tenderness, no cyanosis, no lower extremity edema Neurologic: Alert and oriented X 3, normal motor function, normal sensory function, no focal deficits noted. [] Psychologic: Affect normal, judgement normal, mood-very anxious/overwhelmed Pelvic Chaperoned by RN,: manual exam w/sterile gloves, very sensitive to the external touch - pain with frog leg positioning over inner thighs/external vagina, no vaginal spasms/or h/o dyspareunia, speculum not used because of this, external genitalia normal - tp residue within labia, no vaginal bleeding, normal nonmalodorous clear discharge, cervical os closed, no chandelier sign Current Patient Data: Labs: Laboratory Tests Test 01/08/21 12:20 White Blood Count 10.6 x10^3/uL (4.0-11.0) Red Blood Count 3.41 x10^6/uL (3.50-5.40) L Hemoglobin 9.8 g/dL (12.0-15.5) L Hematocrit 29.7 % (36.0-47.0) L Mean Corpuscular Volume 87 fL (79-100) Mean Corpuscular Hemoglobin 29 pg (25-35) Mean Corpuscular Hemoglobin Concent 33 g/dL (31-37) Red Cell Distribution Width 13.2 % (11.5-14.5) Platelet Count 257 x10^3/uL (140-400) Neutrophils (%) (Auto) 76 % (31-73) H Lymphocytes (%) (Auto) 17 % (24-48) L Monocytes (%) (Auto) 7 % (0-9) Eosinophils (%) (Auto) 1 % (0-3) Basophils (%) (Auto) 0 % (0-3) Neutrophils # (Auto) 8.0 x10^3uL (1.8-7.7) H Lymphocytes # (Auto) 1.8 x10^3/uL (1.0-4.8) Monocytes # (Auto) 0.8 x10^3/uL (0.0-1.1) Eosinophils # (Auto) 0.1 x10^3/uL (0.0-0.7) Basophils # (Auto) 0.0 x10^3/uL (0.0-0.2) Maternal Serum HCG Beta Subunit 63014 mIU/mL (0-6) H Microbiology 01/08/21 Wet Prep - Final, Complete Vital Signs: Vital Signs Date Time Temp Pulse Resp B/P (MAP) Pulse Ox O2 Delivery O2 Flow Rate FiO2 01/08/21 11:32 98.2 135 24 125/83 (97) 99 Room Air EKG: EKG: [] Radiology/Procedures: Radiology/Procedures: IMAGING REPORT Signed PATIENT: KEO FREDERICK ACCOUNT: [id number] : 2000 LOCATION: ER AGE: 20 SEX: F EXAM STATUS: REG ER ORD. PHYSICIAN: JESSICA HANSEN DO REASON: 27 weeks prego, inguinal pain PROCEDURE: OB LIMITED OB ultrasound limited HISTORY: 27 weeks with inguinal pain Sonographic examination appearance was performed by transabdominal technique. Multiple static images were obtained. There is a single live intrauterine . The heartbeat is confirmed at 127 beats per minute. Visualization of structures is limited at this advanced gestational age. The amniotic fluid volume appears normal amniotic fluid index measures 14.1 cm. The cervix is not well seen due to the cephalic position. The re is an anterior placenta. The LMP of 07/01/2020 corresponds with 27 week 2 day gestational age and estimated confinement of April 07, 2021 Estimated size by ultrasound is 29 weeks 1 day estimated confinement 03/25/2021. weight percentile 69%. Estimated weight is 2 lbs. 13 oz. +/- 7 ounces. The measurements are as follows: BPD 7.5 cm 30 weeks 0 days Head is covered 27 cm 29 weeks 5 days As follows comments 25 cm 29 weeks 0 days Femur length 5.3 cm 28 weeks 0 days IMPRESSION: 1. Single live intrauterine at 29 weeks 2 days gestational age by LMP measures 29 weeks 1 day gestational age by ultrasound. This is slightly greater interval growth than expected since the September 21, 2020 exam but is within one standard deviation. 2. No structural anomalies identified. A short-term follow-up ultrasound could be performed if clinically indicated. Electronically signed by: Alix Hugo III, MD (01/08/2021 1:52 PM) [id number] DICTATED AND SIGNED BY: ALIX HUGO III, MD DATE: 01/08/21 1345 CC: PCP,UNKNOWN; JESSICA HANSEN DO ~MTH0 0 bedside POCUS ob US with IUP, FHR 130, normal movement/moving extremities, oligohydramnios? performed on ed arrival Heart Score: C/O Chest Pain: No Risk Factors: Risk Factors: DM, Current or recent (<one month) smoker, HTN, HLP, family history of CAD, obesity. Risk Scores: Score 0 - 3: 2.5% MACE over next 6 weeks - Discharge Home Score 4 - 6: 20.3% MACE over next 6 weeks - Admit for Clinical Observation Score 7 - 10: 72.7% MACE over next 6 weeks - Early Invasive Strategies Course & Med Decision Making: Course & Med Decision Making Pertinent Labs and Imaging studies reviewed. (See chart for details) Concern for lower pelvic pain/external vaginal pain and inner thigh pain in the setting of anxiety, N/V. Pain now sleeping - upon awakening states pain is gone. I suspect round ligament pain vs LE thigh/musculoskeletal pain w/anxiety component. Unremarkable wet prep. Labs show normocytic anemia which is worsened from prior labs. Normal BP. No blurry vision or epigastric pain. A+ blood type. U/A w/ no infection, protein, RBC or blood. Will discharge home with strict ED return precautions were given for recurrent abdominal or pelvic pain, abnormal vaginal discharge, vaginal bleeding or fever. Encouraged urgent outpatient follow-up with PMD and HEATER INSTALLER-obgyn in 48 hours. Life-threatening processes were considered but are low suspicion at this time, given history, physical exam and ED workup. Pt was educated on all prescription medications and adverse effects. All patient's questions were answered and pt was stable at time of discharge. Life/limb-threatening differential includes but is not limited to, , ectopic , malposition/incarcerated uterus, labor, placental abruption or uterine rupture, vaginal trauma, surgical abdomen, placenta previa/accreta/increta/percreta, preeclampsia/aphasia, HELLP syndrome, ovarian cystm torsion, chorioamnionitis or cholestasis of . I spoken with the patient and her caregivers. I explained the patient's condition, diagnoses and treatment plan based on the information available to me at this time. I have answered the patient and her caregiver's questions and addressed any concerns. The patient and her caregivers have a good understand ing of patient's diagnosis, condition and treatment plan as can be expected at this point. Vital signs have been stable. Patient's condition is stable and appropriate for discharge from the emergency department. Patient will pursue further outpatient evaluation with primary care physician or other designated or consulting physician as outlined in the discharge instructions. The patient and/or caregivers are agreeable to this plan of care and follow-up instructions have been explained in detail. The patient and/or caregivers have received these instructions in written form and have expressed an understanding of the discharge instructions. The patient and/or caregivers are aware that any significant change of condition or worsening of symptoms should prompt immediate return to this or the closest emergency department or call to 911. Elmer Disclaimer: Elmer Disclaimer: This electronic medical record was generated, in whole or in part, using a voice recognition dictation system. Departure Departure: Impression: Primary Impression: Abdominal pain affecting Additional Impressions: Abdominal pain during in second trimester Vomiting Disposition: 01 DC HOME SELF CARE/HOMELESS Condition: STABLE Referrals: PCP,UNKNOWN (PCP) FOLLOW UP WITH FAMILY MEDICINE: [facility], [facility] [address] [address], Patient Instructions: Abdominal Pain During , Nausea and Vomiting Additional Instructions: FOLLOW UP WITH OBGYN: [facility] [address], [address] [place] [address] EMERGENCY DEPARTMENT GENERAL DISCHARGE INSTRUCTIONS Thank you for coming to [facility] (ED) today and trusting us with you care. We trust that you had a positivie experience in our Emergency Department. If you wish to speak to the department management, you may call the director at [phone]. YOUR FOLLOW UP INSTRUCTIONS ARE FOLLOWS: 1. Do you have a private Doctor? If you do not have a private doctor, please ask for a resource list of physicians or clinics that may be able to assist you with follow up care. 2. The Emergency Physician has interpreted your x-rays. The X-Ray specialist will also review them. If there is a change in the findings, you will be notified in 48 hours when at all possible. 3. A lab test or culture has been done, your results will be reviewed and you will be notified if you need a change in treatment. ADDITIONAL INSTRUCTIONS AND INFORMATION: 1. Your care today has been supervised by a physician who is specially trained in emergency care. Many problems require more than one evaluation for a complete diagnosis and treatment. We recommend that you schedule your follow up appointment as recommended to ensure complete treatment of you illness or injury. If you are unable to obtain follow up care and continue to have a problem, or if your condition worsens, we recommend that you return to the ED. 2. We are not able to safely determine your condition over the phone nor are we able to give sound medical advice over the phone. For these safety reasons, if you call for medical advice we will ask you to come to the ED for further evaluation. 3. If you have any questions regarding these discharge instructions please call the ED at [phone]. SAFETY INFORMATION: In the interest of safety, wellness, and injury prevention; we encourage you to wear your sealbelt, if you smoke; quite smoking, and we encourage family to use a protective helmet for bicycling and other sporting events that present an increased risk for head injury. IF YOUR SYMPTOMS WORSEN OR NEW SYMPTOMS DEVELOP, OR YOU HAVE CONCERNS ABOUT YOUR CONDITION; OR IF YOUR CONDITION WORSENS WHILE YOU ARE WAITING FOR YOUR FOLLOW UP APPOINTMENT; EITHER CONTACT YOUR PRIMARY CARE DOCTOR, THE PHYSICIAN WHOSE NAME AND NUMBER YOU WERE GIVEN, OR RETURN TO THE ED IMMEDIATELY. Scripts Doxylamine/Pyridoxine Hcl (CARMELINA HOROWITZ 10-10 MG TABLET) 1 Each Tablet.dr 2 TAB PO Q6-8HRS PRN for nausea/vomiting for 24 Days, #20 TAB 0 Refills Prov: JESSICA HANSEN DO 01/08/21 JESSICA HANSEN DO Jan 08, 2021 14:16
[2021-01-08 14:19] LABS: CALCIUM 8.8 mg/dL (8.5-10.1); CREATININE 0.5 mg/dL (0.6-1.0); GFR 154.3; POTASSIUM 3.8 mmol/L (3.5-5.1)
[2021-01-08 15:27] LABS: BACTERIA,URINE 0 /HPF (0-FEW); BILIRUBIN,URINE NEG (NEG); CLARITY,URINE CLEAR; COLOR,URINE YELLOW; GLUCOSE,URINE NEG (NEG); NITRITE,URINE NEG (NEG); RBC,URINE 0 /HPF (0-2); SQUAMOUS EPITHELIAL CELL,UR FEW /LPF; UROBILINOGEN,URINE 0.2 mg/dL (0.2 mg/dL); WBC,URINE 0 /HPF (0-4)
[2021-01-08 15:34] LABS: BARBITURATES NEG (NEG); BENZODIAZEPINES NEG (NEG); CANNABINOIDS NEG (NEG); COCAINE NEG (NEG); METHADONE NEG (NEG); OPIATES NEG (NEG); PHENCYCLIDINE NEG (NEG)
[2021-01-08 15:38] LABS: AMPHETAMINE/METHAMPHETAMINE NEG (NEG)
[2021-01-08 15:56] LABS: ETHANOL < 10 mg/dL (0-10); SALIC < 2.8 mg/dL (2.8-20.0)
[2021-01-08] MEDS ORDERED: DOXY1TAB3 PO (17:31)
== END 2021-01-08 17:40 | disposition home or self-care (01) ==
LOC: ER 11:32
DX: O21.9 Vomiting of pregnancy, unspecified (principal); O26.893 Other specified pregnancy related conditions, third trimester; R10.2 Pelvic and perineal pain; R10.13 Epigastric pain; O23.43 Unspecified infection of urinary tract in pregnancy, third trimester; O99.333 Smoking (tobacco) complicating pregnancy, third trimester; Z3A.29 29 weeks gestation of pregnancy; Z88.0 Allergy status to penicillin; Z88.1 Allergy status to other antibiotic agents
CPT/HCPCS: 36415; 76815; 80048; 80307; 80329; 81001; 83930; 84702; 85025; 96374; 99284; G0480; J2405; Q0111

== ENCOUNTER 2021-02-14 19:57 | Emergency (ER) | payer OTHER ==
[~2021-02-14] VITALS: Ht 167.6 cm; Wt 87.2 kg
[~2021-02-14 19:57] MED LIST changes: +DOXY1TAB3 PO
--- NOTE | 2021-02-14 20:24 | PHYS DOC ---
Past History Past Medical History: Depression, UTI Past Surgical History: No Surgical History Smoking: Cigarettes Alcohol Use: None Drug Use: None General Adult EDM: Chief Complaint: ABDOMINAL PAIN IN HPI: HPI: ".. I a high risk .. and I ve been have lower and Rt. abdomen pain the past week.. .We had Tuna and Hood about an hour ago and my abdomen pain is much worse now.... Patient is a 20 year old female who presents with above hx and complaints generalized abdomen pain patient is approximately 35 weeks and 1 day. Has history of 5 pregnancies 4 miscarriages in first trimester. No history of trauma. No history of bad food intake. No history of recent travel. Patient follows up [facility] for [facility] care. Patient is on vitamins. Patient plans to deliver at [facility]. Patient is extremely anxious about the abdomen pain. Patient denies any bloody show or discharge vaginally. Patient currently rating her pain as 10 out of 10. Patient has very active fetus. Patient fetus is in the lateral position. Has not descended into the pelvis. heart rates running between 1 40-1 60. Denies history of past STDs. There is family history of coagulopathy. Patient seen previously for episode of abdomen pain on January 08. Review of Systems: Review of Systems: Constitutional: Denies fever or chills Eyes: Denies change in visual acuity HENT: Denies nasal congestion or sore throat Respiratory: Denies cough or shortness of breath Cardiovascular: Denies chest pain or edema GI: Complains of abdominal pain, nausea,. Denies vomiting, bloody stools or diarrhea : Denies dysuria Musculoskeletal: Denies back pain or joint pain Integument: Denies rash Neurologic: Denies headache, focal weakness or sensory changes Endocrine: Denies polyuria or polydipsia Lymphatic: Denies swollen glands Psychiatric: Patient having extreme anxiety Family History: Family History: Noncontributory to presentation Current Medications: Current Meds: See nursing for home meds Allergies: Allergies: Allergies Coded Allergies Type Severity Reaction Last Updated Verified Penicillins Allergy Severe Hives 08/05/15 Yes erythromycin base Allergy Unknown 03/02/20 Yes Physical Exam: PE: Constitutional: in acute emotional distress, non-toxic appearance. [] HENT: Normocephalic, atraumatic, bilateral external ears normal, oropharynx moist, no oral exudates, nose normal. [] Eyes: PERRLA, EOMI, conjunctiva normal, no discharge. [] Neck: Normal range of motion, no tenderness, supple, no stridor. [] Cardiovascular:Heart rate regular rhythm, no murmur [] Lungs & Thorax: Bilateral breath sounds equal apex with few basilar scattered wheezes on auscultation [] Abdomen: Bowel sounds normal, soft, generalized abdomen tenderness, no masses, no pulsatile masses. Obvious active movements. heart rate between 1 40-1 60. Fetus is in the lateral position. head at 3:00 on the right. Pelvic exam shows no obvious discharge or fluid leakage. No bleeding. Os is closed. Cultures were collected. Rectal exam hard stool. Skin: Warm, dry, no erythema, no rash. [] Back: No tenderness, no CVA tenderness. [] Extremities: No tenderness, no cyanosis, no clubbing, ROM intact, no edema. [] Neurologic: Alert and oriented X 3, normal motor function, normal sensory function, no focal deficits noted. [] DTRs +2 patella brachial. Psychologic: Affect extremely anxious, panicking, judgement normal, mood depressed and tearful. EKG: EKG: [] Radiology/Procedures: Radiology/Procedures: [][place] [address] IMAGING REPORT Signed PATIENT: KEO FREDERICK ACCOUNT: [id number] : 2000 LOCATION: ER AGE: 20 SEX: F EXAM STATUS: REG ER ORD. PHYSICIAN: VASILE LU MD REASON: Gravid 33, PAIN RT SIDE PROCEDURE: OB LIMITED Exam: Ultrasound OB limited Indication: Right-sided pain Technique: Real-time grayscale and color Doppler images of the pelvis were obtained by the department contact center assistant. Comparisons: None FINDINGS: Within the uterus there is a single live intrauterine gestation with heart rate measured at 163 bpm. Fetus is cephalic in position. measurements as follows: BPD: 8.6 cm corresponding to 34 weeks 6 days Head circumference: 31.6 cm corresponding to 35 weeks 3 days Abdominal circumference: 30.6 cm corresponding to 34 weeks 4 days Femur length: 6.9 cm corresponding to 35 weeks 3 days Placenta is anterior and appears unremarkable. JA measured at 7.5 cm Cervix is not visualized. IMPRESSION: Single live intrauterine gestation with measurements as described above. Electronically signed by: Michael Larios MD (02/14/2021 10:30 PM) [facility] DICTATED AND SIGNED BY: MICHAEL LARIOS MD DATE: 02/14/212226 CC: VASILE LU MD; PCP,UNKNOWN ~MTH0 0 Heart Score: C/O Chest Pain: N/A Risk Factors: Risk Factors: DM, Current or recent (<one month) smoker, HTN, HLP, family histo ry of CAD, obesity. Risk Scores: Score 0 - 3: 2.5% MACE over next 6 weeks - Discharge Home Score 4 - 6: 20.3% MACE over next 6 weeks - Admit for Clinical Observation Score 7 - 10: 72.7% MACE over next 6 weeks - Early Invasive Strategies Course & Med Decision Making: Course & Med Decision Making Pertinent Labs and Imaging studies reviewed. (See chart for details) Keep follow up at [facility] and your [facility]. Clear fluids x 24hrs. no solids or milk products. Allow bowel rest. Continue vitamins. Continue aspirin as directed. Must make plans for how she will arrive at [facility]. Did discuss patient's case with the on-call ASSISTANT CHIEF TRAIN DISPATCHER. Patient is to follow-up [facility] any further problems with this to allow continuity of care. Patient encouraged to not smoke. Patient follow-up pending cultures. At time of discharge patient's pain had resolved and was much more calm. Impression: 1. Abdomen pain affecting 2. Intrauterine heart rate 150s to 160s 3. Mild anemia hemoglobin 9.1 4. Mild elevation alk phos 140 5. Maternal blood type A + positive 6. Beta hCGs 61,284 7. Pt.Hx.of Depression and Anxiety Disorder 8. Tobacco Use 9. Constipation [] Dragon Disclaimer: Dragon Disclaimer: This electronic medical record was generated, in whole or in part, using a voice recognition dictation system. Departure Departure: Referrals: PCP,UNKNOWN (PCP) Elmer Disclaimer This chart was dictated in whole or in part using Voice Recognition software in a busy, high-work load, and often noisy Emergency Department environment. It may contain unintended and wholly unrecognized errors or omissions. VASILE LU MD Feb 14, 2021 20:24
[2021-02-14] MEDS ORDERED: oxyCODONE/APAP 5/325 1 TAB TABLET PO ONE (20:30)
[2021-02-14] MEDS ORDERED: FAMOTIDINE 20 MG/2 ML VIAL IVP ONE (20:30)
[2021-02-14] MEDS ORDERED: IV RINGERS SOLUTION,LACTATED 1,000 ML IV SCH (20:30)
[2021-02-14] MEDS ORDERED: ONDANSETRON PF 4 MG/2 ML VIAL. IVP ONE (20:30)
[2021-02-14 21:12] LABS: BASO % 0 % (0-3); EOS % 0 % (0-3); HEMATOCRIT 28.4 % (36.0-47.0); HEMOGLOBIN 9.1 g/dL (12.0-15.5); LYMPH # 2.5 x10^3/uL (1.0-4.8); LYMPH % 25 % (24-48); MEAN CORPUSCULAR HEMOGLOBIN 26 pg (25-35); MEAN CORPUSCULAR HGB CONC 32 g/dL (31-37); MEAN CORPUSCULAR VOLUME 82 fL (79-100); MONO # 0.8 x10^3/uL (0.0-1.1); MONO % 8 % (0-9); NEUT # 6.4 x10^3uL (1.8-7.7); NEUT % 66 % (31-73); PLATELET COUNT 258 x10^3/uL (140-400); RED BLOOD COUNT 3.49 x10^6/uL (3.50-5.40); RED CELL DISTRIBUTION WIDTH 14.6 % (11.5-14.5); WHITE BLOOD COUNT 9.7 x10^3/uL (4.0-11.0)
[2021-02-14 21:13] LABS: BARBITURATES NEG (NEG); BENZODIAZEPINES NEG (NEG); CANNABINOIDS NEG (NEG); COCAINE NEG (NEG); METHADONE NEG (NEG); OPIATES NEG (NEG); PHENCYCLIDINE NEG (NEG)
[2021-02-14 21:14] LABS: AMPHETAMINE/METHAMPHETAMINE NEG (NEG)
[2021-02-14 21:17] LABS: ANION GAP 9 (6-14); BLOOD UREA NITROGEN 7 mg/dL (7-20); CALCIUM 9.1 mg/dL (8.5-10.1); CARBON DIOXIDE 24 mmol/L (21-32); CHLORIDE 106 mmol/L (98-107); CREATININE 0.6 mg/dL (0.6-1.0); GLUCOSE 127 mg/dL (70-99); POTASSIUM 3.8 mmol/L (3.5-5.1); SODIUM 139 mmol/L (136-145)
[2021-02-14 21:23] LABS: ALBUMIN 2.4 g/dL (3.4-5.0); ALK PHOS 140 U/L (46-116); ALT (SGPT) 17 U/L (14-59); AST (SGOT) 17 U/L (15-37); LIPASE 121 U/L (73-393); TOTAL BILIRUBIN 0.2 mg/dL (0.2-1.0); TOTAL PROTEIN 6.6 g/dL (6.4-8.2)
[2021-02-14 21:24] LABS: DIRECT BILIRUBIN < 0.1 mg/dL (0.0-0.2)
[2021-02-14 22:11] LABS: BILIRUBIN,URINE NEG (NEG); CLARITY,URINE CLEAR; COLOR,URINE YELLOW; GLUCOSE,URINE NEG (NEG); NITRITE,URINE NEG (NEG); UROBILINOGEN,URINE 0.2 mg/dL (0.2 mg/dL)
[2021-02-14 22:12] LABS: BACTERIA,URINE 0 /HPF (0-FEW); RBC,URINE 0 /HPF (0-2); SQUAMOUS EPITHELIAL CELL,UR MANY /LPF; WBC,URINE 0 /HPF (0-4)
--- NOTE | 2021-02-14 22:32 | RAD ---
Exam: Ultrasound OB limited Indication: Right-sided pain Technique: Real-time grayscale and color Doppler images of the pelvis were obtained by the department school psychologist. Comparisons: None FINDINGS: Within the uterus there is a single live intrauterine gestation with heart rate measured at 163 bpm. Fetus is cephalic in position. measurements as follows: BPD: 8.6 cm corresponding to 34 weeks 6 days Head circumference: 31.6 cm corresponding to 35 weeks 3 days Abdominal circumference: 30.6 cm corresponding to 34 weeks 4 days Femur length: 6.9 cm corresponding to 35 weeks 3 days Placenta is anterior and appears unremarkable. JA measured at 7.5 cm Cervix is not visualized. IMPRESSION: Single live intrauterine gestation with measurements as described above. Electronically signed by: Michael Shah MD (02/14/2021 10:30 PM) [facility]
[2021-02-14 23:45] VITALS: BP 146/83
[2021-02-16 22:08] LABS: CHLAMYDIA PROBE Negative (Negative)
== END 2021-02-14 23:44 | disposition home or self-care (01) ==
LOC: ER 19:57
DX: O99.013 Anemia complicating pregnancy, third trimester (principal); R79.89 Other specified abnormal findings of blood chemistry; K59.00 Constipation, unspecified; O23.43 Unspecified infection of urinary tract in pregnancy, third trimester; O99.333 Smoking (tobacco) complicating pregnancy, third trimester; Z3A.35 35 weeks gestation of pregnancy
CPT/HCPCS: 36415; 76815; 80048; 80076; 80307; 81001; 83690; 84702; 85025; 85610; 85730; 86850; 86900; 86901; 87491; 87591; 96361; 96374; 96375; 99284; J2405; J3490; J7120; Q0111

== ENCOUNTER 2021-10-14 15:29 | Emergency (ER) | payer OTHER ==
[~2021-10-14] VITALS: Ht 167.6 cm; Wt 83.2 kg
[2021-10-14 15:29] VITALS: BP 59/83
--- NOTE | 2021-10-14 15:51 | PHYS DOC ---
Past History Past Medical History: Depression, UTI Past Surgical History: No Surgical History Smoking: Cigarettes Alcohol Use: None Drug Use: None General Adult EDM: Chief Complaint: HEADACHE HPI: HPI: 21-year-old female that is 18 weeks presents with headache. She describes it as a global pressure sensation. The patient has a history of migraines. She talked to her OB but was unable to transport to the hospital where she supposed to deliver. She came here instead. Patient tells me that she has been having these headaches nearly every day since . Today is worse than yesterday and has been constant so she came in for evaluation. Patient has had preeclampsia with previous . She has been eating and drinking normally. She denies dysuria or urinary frequency. Denies fever or ch ills. Review of Systems: Review of Systems: Constitutional: Denies fever or chills Eyes: Denies change in visual acuity HENT: Denies nasal congestion or sore throat Respiratory: Denies cough or shortness of breath Cardiovascular: Denies chest pain or edema GI: Denies abdominal pain, nausea, vomiting, bloody stools or diarrhea : Denies dysuria Musculoskeletal: Denies back pain or joint pain Integument: Denies rash Neurologic: Headache. Denies focal weakness or sensory changes Endocrine: Denies polyuria or polydipsia Lymphatic: Denies swollen glands Psychiatric: Denies depression or anxiety Allergies: Allergies: Allergies Coded Allergies Type Severity Reaction Last Updated Verified Penicillins Allergy Severe Hives 08/05/15 Yes erythromycin base Allergy Unknown 03/02/20 Yes Physical Exam: PE: Constitutional: Well developed, well nourished, no acute distress, non-toxic appearance. [] HENT: Normocephalic, atraumatic, bilateral external ears normal, oropharynx moist, no oral exudates, nose normal. [] Eyes: PERRLA, EOMI, conjunctiva normal, no discharge. [] Neck: Normal range of motion, no tenderness, supple, no stridor. [] Cardiovascular: Heart rate regular rhythm, no murmur [] Lungs & Thorax: Bilateral breath sounds clear to auscultation [] Abdomen: Bowel sounds normal, gravid uterus, no masses, no pulsatile masses. [] Skin: Warm, dry, no erythema, no rash. [] Back: No tenderness, no CVA tenderness. [] Extremities: No tenderness, no cyanosis, no clubbing, ROM intact, no edema. [] Neurologic: Alert and oriented X 3, normal motor function, normal sensory function, no focal deficits noted. [] Psychologic: Affect normal, judgement normal, mood normal. [] EKG: EKG: [] Radiology/Procedures: Radiology/Procedures: [] Heart Score: C/O Chest Pain: N/A Risk Factors: Risk Factors: DM, Current or recent (<one month) smoker, HTN, HLP, family hi story of CAD, obesity. Risk Scores: Score 0 - 3: 2.5% MACE over next 6 weeks - Discharge Home Score 4 - 6: 20.3% MACE over next 6 weeks - Admit for Clinical Observation Score 7 - 10: 72.7% MACE over next 6 weeks - Early Invasive Strategies Course & Med Decision Making: Course & Med Decision Making Pertinent Labs and Imaging studies reviewed. (See chart for details) Patient's initial blood pressure was 151/59. For her headache I have ordered 1 L normal saline, 1 g of Tylenol, 10 mg of Reglan, 25 mg of Benadryl. The patient's pain is improved. She is ready to go home. She will follow-up with her NAIL TECHNICIAN in 2 days about her blood pressure. She is stable for discharge at this time. [] Elmer Disclaimer: Elmer Disclaimer: This electronic medical record was generated, in whole or in part, using a voice recognition dictation system. Departure Departure: Impression: Primary Impression: Migraine headache Additional Impressions: Hypertension Disposition: HOME / SELF CARE / HOMELESS Condition: IMPROVED Referrals: PCP,UNKNOWN (PCP) RITA FELTON DO Oct 14, 2021 15:51
[2021-10-14] MEDS ORDERED: ACETAMINOPHEN 500 MG TABLET PO ONE (16:00)
[2021-10-14] MEDS ORDERED: IV NORMAL SALINE 1,000ML 1,000 ML IV ONE (16:00)
[2021-10-14] MEDS ORDERED: diphenhydrAMINE 50 MG/ML VIAL IVP ONE (16:00)
[2021-10-14] MEDS ORDERED: METOCLOPRAMIDE HCL 10 MG/2 ML VIAL. IVP ONE (16:00)
[2021-10-14 17:55] LABS: ALBUMIN 2.8 g/dL (3.4-5.0); ALBUMIN/GLOBULIN RATIO 0.7 (1.0-1.7); CALCIUM 8.5 mg/dL (8.5-10.1)
[2021-10-14 17:56] LABS: CREATININE 0.5 mg/dL (0.6-1.0); GFR 152.9; POTASSIUM 3.6 mmol/L (3.5-5.1); TOTAL BILIRUBIN 0.2 mg/dL (0.2-1.0)
[2021-10-14 17:57] LABS: RED BLOOD COUNT 4.21 x10^6/uL (3.50-5.40); WHITE BLOOD COUNT 8.6 x10^3/uL (4.0-11.0)
[2021-10-14 17:58] LABS: BASO % 0 % (0-3); EOS % 1 % (0-3); HEMATOCRIT 38.5 % (36.0-47.0); HEMOGLOBIN 12.8 g/dL (12.0-15.5); LYMPH % 24 % (24-48); MEAN CORPUSCULAR HEMOGLOBIN 30 pg (25-35); MEAN CORPUSCULAR HGB CONC 33 g/dL (31-37); MEAN CORPUSCULAR VOLUME 92 fL (79-100); MONO % 6 % (0-9); NEUT % 70 % (31-73); PLATELET COUNT 219 x10^3/uL (140-400); RED CELL DISTRIBUTION WIDTH 14.5 % (11.5-14.5)
[2021-10-14 17:59] LABS: MONO # 0.5 x10^3/uL (0.0-1.1)
[2021-10-14 18:00] LABS: BACTERIA,URINE 0 /HPF (0-FEW); BILIRUBIN,URINE NEG (NEG); CLARITY,URINE CLEAR; COLOR,URINE YELLOW; GLUCOSE,URINE NEG (NEG); NITRITE,URINE NEG (NEG); RBC,URINE 0 /HPF (0-2); UROBILINOGEN,URINE 0.2 mg/dL (0.2 mg/dL); WBC,URINE 0 /HPF (0-4)
[2021-10-14 18:01] LABS: SQUAMOUS EPITHELIAL CELL,UR FEW /LPF
--- NOTE | 2021-10-14 18:46 | RAD ---
Obstetric ultrasound, Limited: Reason for examination: abdominal pain, 18 weeks . COMPARISON: 02/14/2021. TECHNIQUE: Limited transabdominal ultrasound of the uterus was performed. FINDINGS: NUMBER: Single POSITION: Vertex PLACENTA: Location: Anterior Placentation: Normal. Cord insertion: Normal. Cord type: 3 vessel cord. ANATOMY: HEART RATE: 139.00 (beats per minute) Amniotic fluid index 16.6 cm Current measurements are: BPD - 4.56 = 19w5d HC -16.22 = 19w0d AC - 14.45 = 19w5d FL - 2.88 = 18w6d Estimated weight 286 g or approximately 10 ounces. MATERNAL ANATOMY CERVIX Length (cm): 2.92 cm UTERUS: No abnormalities seen. Placenta appears normal without appreciable hemorrhage. OVARIES/ADNEXAE: No masses seen. CUL-DE-SAC: No fluid. HISTORICAL DATES Last menstrual period: 06/06/2021 CALCULATED DATES EGA (LMP): 18 weeks 4 days MABLE (LMP): 03/13/2022 EGA (US): 19 weeks 2 days MABLE (US): 03/08/2022 IMPRESSION: Single viable intrauterine gestation without gross abnormality seen. Mean gestational age of age is estimated at 19 weeks 2 days with an estimated date of confinement of 03/08/2022. Electronically signed by: Chiquis Mack MD (10/14/2021 6:30 PM) LATRICE
== END 2021-10-14 17:28 | disposition home or self-care (01) ==
LOC: ER 15:29
DX: O26.892 Other specified pregnancy related conditions, second trimester (principal); G43.909 Migraine, unspecified, not intractable, without status migrainosus; I10 Essential (primary) hypertension; Z3A.18 18 weeks gestation of pregnancy; Z88.0 Allergy status to penicillin; Z88.1 Allergy status to other antibiotic agents
CPT/HCPCS: 36415; 76815; 80053; 81001; 85025; 96361; 96374; 96375; 99284; J1200; J2765; J7030

== ENCOUNTER 2021-11-01 10:21 | Emergency (ER) | payer OTHER ==
[~2021-11-01] VITALS: Ht 167.6 cm; Wt 86.8 kg
[2021-11-01 13:09] LABS: BILIRUBIN,URINE NEG (NEG); CLARITY,URINE CLEAR; COLOR,URINE YELLOW; GLUCOSE,URINE NEG (NEG); UROBILINOGEN,URINE 0.2 mg/dL (0.2 mg/dL)
[2021-11-01 13:10] LABS: BACTERIA,URINE FEW /HPF (0-FEW); NITRITE,URINE NEG (NEG); SQUAMOUS EPITHELIAL CELL,UR FEW /LPF
[2021-11-01 13:57] VITALS: BP 132/79
[2021-11-02 18:07] LABS: CHLAMYDIA PROBE Negative (Negative)
== END 2021-11-01 13:57 | disposition home or self-care (01) ==
LOC: ER 10:21
DX: O99.891 Other specified diseases and conditions complicating pregnancy (principal); N89.8 Other specified noninflammatory disorders of vagina; Z3A.21 21 weeks gestation of pregnancy
CPT/HCPCS: 81001; 87491; 87591; 99284; Q0111; 99283

== ENCOUNTER 2022-01-21 09:21 | Emergency (ER) | payer OTHER ==
[~2022-01-21] VITALS: Ht 167.6 cm; Wt 98.5 kg
[2022-01-21 09:21] VITALS: BP 138/79
[2022-01-21 10:04] LABS: INFLUENZA A PATIENT NEGATIVE (NEGATIVE); INFLUENZA B PATIENT NEGATIVE (NEGATIVE)
[2022-01-21] MEDS ORDERED: DEXAMETHASONE 4 MG TABLET PO ONE (10:15)
--- NOTE | 2022-01-21 10:15 | PHYS DOC ---
Past History Past Medical History: Anxiety, Depression, Migraines, UTI Additional Past Medical Histor: Pre-Eclampsia, gestational Diabetes, Vaginal hemorrhage in delivery, PTSD Past Surgical History: No Surgical History Smoking: Cigarettes Alcohol Use: None Drug Use: None General Adult EDM: Chief Complaint: CONGESTION HPI: HPI: Patient is a 21-year-old female ( AB4) presents to the ER at 32 weeks for nasal congestion cough and burning ear pain. The ear pain began 3 days ago the nasal congestion and cough started yesterday afternoon without fever. Last night after eating she had one episode of nonbloody emesis and could not sleep all night due to the congestion. She called her OB who told her to get Mucinex for the congestion otherwise she has not taken anything to brenda the symptoms. Patient has not had her Covid vaccine but recently got Covid 1 month ago. Denies fever, diarrhea, constipation, headache, eye pain, facial pain, or abdominal pain. Denies vaginal discharge or bleeding. Review of Systems: Review of Systems: Constitutional: Endorses fatigue. Denies fever or chills Eyes: Denies redness or eye pain HENT: Endorses nasal congestion mild sore throat and "burning ear pain" Respiratory: Denies cough or shortness of breath Cardiovascular: Denies chest pain or palpitations GI: Endorses vomiting. Denies abdominal pain : Denies dysuria or hematuria Musculoskeletal: Denies back pain or joint pain Integument: Denies rash or skin lesions Neurologic: Denies headache, focal weakness or sensory changes Complete systems were reviewed and found to be within normal limits, except as documented in this note. Current Medications: Current Meds: Current Medications Medications (Trade) Dose Ordered Sig/Janna Start Time Stop Time Status Last Admin Dose Admin Dexamethasone (Decadron) 10 mg 1X ONCE 01/21/22 10:15 01/21/22 10:16 Allergies: Allergies: Allergies Coded Allergies Type Severity Reaction Last Updated Verified Penicillins Allergy Severe Hives 11/01/21 Yes erythromycin base Allergy Unknown 11/01/21 Yes Physical Exam: PE: Constitutional: Well developed, well nourished, no acute distress, non-toxic appearance HENT: Normocephalic, atraumatic. Moderate clear congestion and drainage, no maxillary or frontal sinus tenderness. No ear tenderness earwax mildly obscuring view of TM. Eyes: Conjunctiva normal. Neck: Normal range of motion, no tenderness, supple Lungs & Thorax: No respiratory distress, equal chest rise and fall Abdomen: Gravid abdomen, no tenderness Skin: Warm, dry, no erythema, no rash Back: No tenderness, no CVA tenderness Extremities: No tenderness, ROM intact, no edema Neurologic: Alert and oriented X 3, no focal deficits noted Psychologic: Affect normal, judgment normal Current Patient Data: Labs: Laboratory Tests Test 01/21/22 09:28 Influenza Type A (Rapid) Negative (NEGATIVE) Influenza Type B (Rapid) Negative (NEGATIVE) SARS-CoV-2 Antigen (Rapid) Negative (NEGATIVE) Vital Signs: Vital Signs Date Time Temp Pulse Resp B/P (MAP) Pulse Ox O2 Delivery O2 Flow Rate FiO2 01/21/22 09:21 98.1 90 16 138/79 (98) 100 Room Air EKG: EKG: [] Radiology/Procedures: Radiology/Procedures: [] Heart Score: C/O Chest Pain: N/A Course & Med Decision Making: Course & Med Decision Making Pertinent Lab studies reviewed. (See chart for details) Third trimester patient presents with HPI and physical exam consistent for URI. Patient is afebrile. Sats stable. heart tones normal. Rapid COVID and influenza negative. Symptomatic treatment provided with oral steroid. Patient stable for discharge with outpatient follow-up with PCP/OB. Discussed findings and plan with patient, who acknowledges understanding and agreement. Elmer Disclaimer: Elmer Disclaimer: This electronic medical record was generated, in whole or in part, using a voice recognition dictation system. Departure Departure: Impression: Primary Impression: URI (upper respiratory infection) Qualified Codes: J06.9 - Acute upper respiratory infection, unspecified Additional Impressions: Otalgia of both ears Qualified Codes: Z3A.36 - 36 weeks gestation of Disposition: HOME / SELF CARE / HOMELESS Condition: STABLE Referrals: NAJMA GALDAMEZ MD (PCP) Patient Instructions: Otalgia, - Third Trimester, [id number], Upper Respiratory Infection, Adult, [id number] Additional Instructions: Increase fluid hydration. Use bedside humidifier CHARIS RICKS DO Jan 21, 2022 10:15
== END 2022-01-21 10:35 | disposition home or self-care (01) ==
LOC: ER 09:21
DX: O26.893 Other specified pregnancy related conditions, third trimester (principal); J06.9 Acute upper respiratory infection, unspecified; H92.03 Otalgia, bilateral; G43.909 Migraine, unspecified, not intractable, without status migrainosus; O23.33 Infections of other parts of urinary tract in pregnancy, third trimester; N39.0 Urinary tract infection, site not specified; O99.333 Smoking (tobacco) complicating pregnancy, third trimester; Z20.822 Contact with and (suspected) exposure to COVID-19; Z3A.32 32 weeks gestation of pregnancy; Z88.0 Allergy status to penicillin; Z88.1 Allergy status to other antibiotic agents
CPT/HCPCS: 87428; 99283; J8540

== ENCOUNTER 2022-03-29 13:59 | Emergency (ER) | payer OTHER ==
[~2022-03-29] VITALS: Ht 167.6 cm; Wt 89.9 kg
[2022-03-29 14:45] VITALS: BP 120/56
[2022-03-29] MEDS ORDERED: ONDANSETRON PF 4 MG/2 ML VIAL. IVP ONE (15:15)
[2022-03-29] MEDS ORDERED: IV NORMAL SALINE 1,000ML 1,000 ML IV ONE (15:15)
[2022-03-29] MEDS ORDERED: KETOROLAC 15 MG/ML VIAL. IVP ONE (15:30)
--- NOTE | 2022-03-29 15:45 | RAD ---
EXAMINATION: XR CHEST 1V CLINICAL HISTORY: Shortness of breath. EXAM DATE/TIME: 03/29/2022 3:41 PM COMPARISON: None FINDINGS: Lines, Tubes, and Devices: None. Cardiomediastinal Silhouette: Within normal limits. Lungs and Pleura: No evidence of focal airspace consolidation, pleural effusion, or pneumothorax. Bones and Soft Tissues: No acute osseous abnormality. IMPRESSION: No evidence of acute cardiopulmonary abnormality. Electronically signed by: Pj Hampton DO (03/29/2022 3:43 PM) AMANDA
--- NOTE | 2022-03-29 15:58 | RAD ---
INDICATION: Reason: generalized abdominal pain / Spl. Instructions: / History: COMPARISON: None. TECHNIQUE: Axial CT images were obtained through the abdomen and pelvis without intravenous contrast. One or more of the following individualized dose reduction techniques were utilized for this examinat ion: 1. Automated exposure control; 2. Adjustment of the mA and/or kV according to patient size; 3 . Use of iterative reconstruction technique. FINDINGS: Vascular: No abdominal aortic aneurysm. Hepatobiliary: No intrahepatic biliary duct dilation. Pancreas: No peripancreatic edema. Spleen: Prominent in size Renal/Bladder: No hydronephrosis. Gastrointestinal: 26 mm suspected cyst at the right ovary. Mild colonic diverticulosis is suspected. No periappendiceal inflammatory changes. There is some distention of the cecum with stool within. Sma ll fat-containing umbilical hernia. There is some scattered lymph nodes seen within the mesenteric fat. IMPRESSION: * No evidence of bowel obstruction or appendicitis. * No hydronephrosis. * Suspected cystic lesion at the right ovary. Electronically signed by: Liam Wild MD (03/29/2022 3:56 PM) [id number]
[2022-03-29 16:30] LABS: BASO % 0 % (0-3); EOS % 1 % (0-3); HEMATOCRIT 37.6 % (36.0-47.0); HEMOGLOBIN 12.3 g/dL (12.0-15.5); LYMPH # 2.8 x10^3/uL (1.0-4.8); LYMPH % 37 % (24-48); MEAN CORPUSCULAR HEMOGLOBIN 28 pg (25-35); MEAN CORPUSCULAR HGB CONC 33 g/dL (31-37); MEAN CORPUSCULAR VOLUME 85 fL (79-100); MONO # 0.6 x10^3/uL (0.0-1.1); MONO % 8 % (0-9); NEUT # 4.1 x10^3uL (1.8-7.7); NEUT % 54 % (31-73); PLATELET COUNT 225 x10^3/uL (140-400); RED BLOOD COUNT 4.44 x10^6/uL (3.50-5.40); RED CELL DISTRIBUTION WIDTH 14.3 % (11.5-14.5); WHITE BLOOD COUNT 7.5 x10^3/uL (4.0-11.0)
[2022-03-29 16:33] LABS: CALCIUM 9.1 mg/dL (8.5-10.1); CREATININE 0.8 mg/dL (0.6-1.0); GFR 88.1; POTASSIUM 3.8 mmol/L (3.5-5.1)
[2022-03-29 16:38] LABS: ALBUMIN 3.6 g/dL (3.4-5.0); TOTAL BILIRUBIN 0.3 mg/dL (0.2-1.0); TOTAL PROTEIN 7.3 g/dL (6.4-8.2)
[2022-03-29 16:46] LABS: CLARITY,URINE HAZY; COLOR,URINE YELLOW; GLUCOSE,URINE NEG (NEG)
[2022-03-29 16:47] LABS: BACTERIA,URINE MOD /HPF (0-FEW); NITRITE,URINE NEG (NEG); RBC,URINE OCC /HPF (0-2); SQUAMOUS EPITHELIAL CELL,UR MOD /LPF; UROBILINOGEN,URINE 0.2 mg/dL (0.2 mg/dL)
--- NOTE | 2022-03-29 16:51 | PHYS DOC ---
Past History Past Medical History: Anxiety, Depression, Migraines, UTI Additional Past Medical Histor: Pre-Eclampsia, gest Diabetes, Vag hemorrhage in delivery, PTSD , 3rd spaci (GABRIELLA SINCLAIR APRN) Past Surgical History: , Tubal ligation (GABRIELLA SINCLAIR APRN) Smoking: Cigarettes Alcohol Use: None Drug Use: None (GABRIELLA SINCLAIR APRN) General Adult EDM: Chief Complaint: MULTIPLE COMPLAINTS HPI: HPI: 22-year-old female presents with multiple complaints. Patient is reporting pain bilaterally right and left lower back, abdomen all the way to her neck. Patient reports nausea. Denies vomiting or diarrhea. No fevers. No recent illness. Denies taking anything for pain prior to arrival. Patient states that pain was worse when she was laying down. No medical history. (GABRIELLA SINCLAIR APRN) Review of Systems: Review of Systems: ROS At least 10 ROS systems have been reviewed and are negative except as documented in the HPI. General: Negative except as outlined in HPI above. Skin: Negative except as outlined in HPI above. HEENT: Negative except as outlined in HPI above. Neck: Negative except as outlined in HPI above. Respiratory: Negative except as outlined in HPI above.. Cardiovascular: Negative except as outlined in HPI above. Abdomen: Negative except as outlined in HPI above. : Negative except as outlined in HPI above. Back/MSK: Negative except as outlined in HPI above. Neuro: Negative except as outlined in HPI above. Psych: Negative except as outlined in HPI above. (GABRIELLA SINCLAIR APRN) Current Medications: Current Meds: Current Medications Medications (Trade) Dose Ordered Sig/Janna Start Time Stop Time Status Last Admin Dose Admin Ketorolac Tromethamine (Toradol 15mg Vial) 15 mg 1X ONCE 03/29/22 15:30 03/29/22 15:41 DC 03/29/22 16:11 15 MG Ondansetron HCl (Zofran) 4 mg 1X ONCE 03/29/22 15:15 03/29/22 15:26 DC 03/29/22 16:08 4 MG Sodium Chloride 1,000 ml @ 1,000 mls/hr 1X ONCE 03/29/22 15:15 03/29/22 16:14 DC 03/29/22 16:08 1,000 MLS/HR (GABRIELLA SINCLAIR APRN) Allergies: Allergies: Allergies Coded Allergies Type Severity Reaction Last Updated Verified Penicillins Allergy Severe Hives 11/01/21 Yes erythromycin base Allergy Unknown 11/01/21 Yes (GABRIELLA SINCLAIR APRN) Physical Exam: PE: Constitutional: Well developed, well nourished, no acute distress, non-toxic appearance. [] HENT: Normocephalic, atraumatic, bilateral external ears normal, oropharynx moist, no oral exudates, nose normal. [] Eyes: PERRLA, EOMI, conjunctiva normal, no discharge. [] Neck: Normal range of motion, no tenderness, supple, no stridor. [] Cardiovascular:Heart rate regular rhythm, no murmur [] Lungs & Thorax: Bilateral breath sounds clear to auscultation [] Abdomen: Bowel sounds normal, soft, right lower quadrant tenderness Skin: Warm, dry, no erythema, no rash. [] Back: Lower back tenderness, right-sided CVA tenderness. [] Extremities: No tenderness, no cyanosis, no clubbing, ROM intact, no edema. [] Neurologic: Alert and oriented X 3, normal motor function, normal sensory function, no focal deficits noted. [] Psychologic: Affect normal, judgement normal, mood normal. [] (GABRIELLA SINCLAIR APRN) Current Patient Data: Labs: Laboratory Tests Test 03/29/22 15:17 03/29/22 15:55 POC Urine HCG, Qualitative hcg negative (Negative) White Blood Count 7.5 x10^3/uL (4.0-11.0) Red Blood Count 4.44 x10^6/uL (3.50-5.40) Hemoglobin 12.3 g/dL (12.0-15.5) Hematocrit 37.6 % (36.0-47.0) Mean Corpuscular Volume 85 fL (79-100) Mean Corpuscular Hemoglobin 28 pg (25-35) Mean Corpuscular Hemoglobin Concent 33 g/dL (31-37) Red Cell Distribution Width 14.3 % (11.5-14.5) Platelet Count 225 x10^3/uL (140-400) Neutrophils (%) (Auto) 54 % (31-73) Lymphocytes (%) (Auto) 37 % (24-48) Monocytes (%) (Auto) 8 % (0-9) Eosinophils (%) (Auto) 1 % (0-3) Basophils (%) (Auto) 0 % (0-3) Neutrophils # (Auto) 4.1 x10^3uL (1.8-7.7) Lymphocytes # (Auto) 2.8 x10^3/uL (1.0-4.8) Monocytes # (Auto) 0.6 x10^3/uL (0.0-1.1) Eosinophils # (Auto) 0.0 x10^3/uL (0.0-0.7) Basophils # (Auto) 0.0 x10^3/uL (0.0-0.2) Sodium Level 141 mmol/L (136-145) Potassium Level 3.8 mmol/L (3.5-5.1) Chloride Level 104 mmol/L (98-107) Carbon Dioxide Level 30 mmol/L (21-32) Anion Gap 7 (6-14) Blood Urea Nitrogen 7 mg/dL (7-20) Creatinine 0.8 mg/dL (0.6-1.0) Estimated GFR (Cockcroft-Gault) 88.1 BUN/Creatinine Ratio 9 (6-20) Glucose Level 84 mg/dL (70-99) Calcium Level 9.1 mg/dL (8.5-10.1) Total Bilirubin 0.3 mg/dL (0.2-1.0) Aspartate Amino Transferase (AST) 35 U/L (15-37) Alanine Aminotransferase (ALT) 58 U/L (14-59) Alkaline Phosphatase 140 U/L (46-116) H Total Protein 7.3 g/dL (6.4-8.2) Albumin 3.6 g/dL (3.4-5.0) Albumin/Globulin Ratio 1.0 (1.0-1.7) Vital Signs: Vital Signs Date Time Temp Pulse Resp B/P (MAP) Pulse Ox O2 Delivery O2 Flow Rate FiO2 03/29/22 14:45 97.7 59 15 120/56 (77) 100 (GABRIELLA SINCLAIR EQUIPMENT LEAD) EKG: EKG: [] (GABRIELLA SINCLAIR EQUIPMENT LEAD) Radiology/Procedures: Radiology/Procedures: []EXAMINATION: XR CHEST 1V CLINICAL HISTORY: Shortness of breath. EXAM DATE/TIME: 03/29/2022 3:41 PM COMPARISON: None FINDINGS: Lines, Tubes, and Devices: None. Cardiomediastinal Silhouette: Within normal limits. Lungs and Pleura: No evidence of focal airspace consolidation, pleural effusion, or pneumothorax. Bones and Soft Tissues: No acute osseous abnormality. IMPRESSION: No evidence of acute cardiopulmonary abnormality. Electronically signed by: Pj Hampton DO (03/29/2022 3:43 PM) [facility] INDICATION: Reason: generalized abdominal pain / Spl. Instructions: / History: COMPARISON: None. TECHNIQUE: Axial CT images were obtained through the abdomen and pelvis without intravenous contrast. One or more of the following individualized dose reduction techniques were utili zed for this examination: 1. Automated exposure control; 2. Adjustment of the mA and/or kV according to patient size; 3. Use of iterative reconstruction technique. FINDINGS: Vascular: No abdominal aortic aneurysm. Hepatobiliary: No intrahepatic biliary duct dilation. Pancreas: No peripancreatic edema. Spleen: Prominent in size Renal/Bladder: No hydronephrosis. Gastrointestinal: 26 mm suspected cyst at the right ovary. Mild colonic diverticulosis is suspected. No periappendiceal inflammatory changes. There is some distention of the cecum with stool within. Small fat-containing umbilical hernia. There is some scattered lymph nodes seen within the mesenteric fat. IMPRESSION: * No evidence of bowel obstruction or appendicitis. * No hydronephrosis. * Suspected cystic lesion at the right ovary. Electronically signed by: Liam Wild MD (03/29/2022 3:56 PM) Perfect [id number] (GABRIELLA SINCLAIR APRN) Heart Score: C/O Chest Pain: No Risk Factors: Risk Factors: DM, Current or recent (<one month) smoker, HTN, HLP, family history of CAD, obesity. Risk Scores: Score 0 - 3: 2.5% MACE over next 6 weeks - Discharge Home Score 4 - 6: 20.3% MACE over next 6 weeks - Admit for Clinical Observation Score 7 - 10: 72.7% MACE over next 6 weeks - Early Invasive Strategies (GABRIELLA SINCLAIR APRN) Course & Med Decision Making: Course & Med Decision Making Pertinent Labs and Imaging studies reviewed. (See chart for details) [] 22-year-old female presents with multiple complaints. Patient is reporting generalized abdominal pain along with back pain. Work-up in ER consisted of CBC, CMP, urinalysis, urine , CT abdomen and pelvis. Patient's nausea and pain treated. All labs unremarkable. Urine is negative for infection. CT abdomen pelvis shows 26 mm suspected cyst at the right ovary. Discussed results with patient. Advised patient she should follow-up with [facility] for further evaluation. Discussed return precautions in length. Patient verbalizes understanding of discharge instruction. (GABRIELLA SINCLAIR APRN) Dragon Disclaimer: Dragon Disclaimer: This electronic medical record was generated, in whole or in part, using a voice recognition dictation system. (GABRIELLA SINCLAIR APRN) Departure Departure: Impression: Primary Impression: Generalized abdominal pain Disposition: HOME / SELF CARE / HOMELESS Condition: STABLE Referrals: TESFAYE CISNEROS APRN (PCP) Patient Instructions: Abdominal Pain (Nonspecific) Additional Instructions: EMERGENCY DEPARTMENT GENERAL DISCHARGE INSTRUCTIONS Thank you for coming to [facility] (ED) today and trusting us with you care. We trust that you had a positivie experience in our Emergency Department. If you wish to speak to the department management, you may call the director at [phone]. YOUR FOLLOW UP INSTRUCTIONS ARE FOLLOWS: 1. Do you have a private Doctor? If you do not have a private doctor, please ask for a resource list of physicians or clinics that may be able to assist you with follow up care. 2. The Emergency Physician has interpreted your x-rays. The X-Ray specialist will also review them. If there is a change in the findings, you will be notified in 48 hours when at all possible. 3. A lab test or culture has been done, your results will be reviewed and you will be notified if you need a change in treatment. ADDITIONAL INSTRUCTIONS AND INFORMATION: 1. Your care today has been supervised by a physician who is specially trained in emergency care. Many problems require more than one evaluation for a complete diagnosis and treatment. We recommend that you schedule your follow up appointment as recommended to ensure complete treatment of you illness or injury. If you are unable to obtain follow up care and continue to have a problem, or if your condition worsens, we recommend that you return to the ED. 2. We are not able to safely determine your condition over the phone nor are we able to give sound medical advice over the phone. For these safety reasons, if you call for medical advice we will ask you to come to the ED for further evaluation. 3. If you have any questions regarding these discharge instructions please call the ED at [phone]. SAFETY INFORMATION: In the interest of safety, wellness, and injury prevention; we encourage you to wear your sealbelt, if you smoke; quite smoking, and we encourage family to use a protective helmet for bicycling and other sporting events that present an increased risk for head injury. IF YOUR SYMPTOMS WORSEN OR NEW SYMPTOMS DEVELOP, OR YOU HAVE CONCERNS ABOUT YOUR CONDITION; OR IF YOUR CONDITION WORSENS WHILE YOU ARE WAITING FOR YOUR FOLLOW UP APPOINTMENT; EITHER CONTACT YOUR PRIMARY CARE DOCTOR, THE PHYSICIAN WHOSE NAME AND NUMBER YOU WERE GIVEN, OR RETURN TO THE ED IMMEDIATELY. GABRIELLA SINCLAIR APRN March 29, 2022 16:51 VASILE LU MD Apr 06, 2022 07:32
== END 2022-03-29 18:56 | disposition home or self-care (01) ==
LOC: ER 13:59
DX: R10.84 Generalized abdominal pain (principal); R10.31 Right lower quadrant pain; M54.59 Other low back pain; G43.909 Migraine, unspecified, not intractable, without status migrainosus; F17.210 Nicotine dependence, cigarettes, uncomplicated; Z87.440 Personal history of urinary (tract) infections; Z98.890 Other specified postprocedural states; Z98.51 Tubal ligation status; Z88.0 Allergy status to penicillin; Z88.1 Allergy status to other antibiotic agents
CPT/HCPCS: 36415; 71045; 74176; 80053; 81001; 81025; 85025; 87086; 87147; 93005; 96361; 96374; 96375; 99285; J1885; J2405; J7030